=== PATIENT | male | born 1940 | race Caucasian/White ===

== ENCOUNTER 2018-07-22 11:47 | Observation (INO) | payer OTHER ==
--- NOTE | 2018-07-22 12:16 | PDOC ---
History of Present Illness - General Chief Complaint: Shortness of Breath Stated Complaint: SHORTNESS OF BREATH Time Seen by Provider: 07/22/18 12:15 - History of Present Illness Initial Comments: The patient is a 78-year-old male with a PMH of HTN, HLD, Dementia, type 2 DM, melanoma (s/p multiple resections, most recent two days prior on his right ear) , who presents to the emergency department from [facility] complaining of" some problem with my breathing" the evening prior to presentation. He is unclear on what the breathing problem was but states that he felt this strange sensation in his stomach when taking a deep breath during the night. It woke him up out of his sleep and he went to bathroom. He attempted to make himself vomit because he thought it would help him feel better. Otherwise he denies nausea, vomiting ,chest pain, actual shortness of breath, or other symptoms. 07/22/18 12:21 Past History - Past Medical History Allergies/Adverse Reactions: Allergies Allergy/AdvReac Type Severity Reaction Status Date / Time No Known Allergies Allergy Verified 07/22/18 12:22 Home Medications: Ambulatory Orders Amlodipine Besylate 2.5 mg PO DAILY 12/17/14 Bupropion HCl [Bupropion Xl] 150 mg PO DAILY 12/17/14 Memantine HCl 5 mg PO DAILY 12/17/14 Simvastatin 5 mg PO HS 12/17/14 Aspirin 81 mg PO DAILY 07/22/18 Carboxymethylcellulose Sodium [Lubricant Eye Drop] 15 ml OS BID 07/22/18 Ciprofloxacin [Cipro (Restricted To Id)] 250 mg PO BID 07/22/18 Docusate Sodium [Colace] 200 mg PO HS 07/22/18 Glimepiride [Amaryl -] 3 mg PO DAILY 07/22/18 Guaifenesin 400 mg PO PRN 07/22/18 Insulin Glargine,Hum.rec.anlog [Lantus Solostar] 30 units SQ DAILY 07/22/18 Mupirocin Cream [Bactroban 2% Cream -] 1 applic TP BID 07/22/18 Tamsulosin HCl [Flomax] 1 tab PO DAILY 07/22/18 traZODone HCL [Trazodone HCl] 50 mg PO HS 07/22/18 Diabetes: Yes HTN: Yes - Suicide/Smoking/Psychosocial Hx Smoking History: Never smoked Have you smoked in the past 12 months: No Hx Alcohol Use: No Drug/Substance Use Hx: No Substance Use Type: None Review of Systems - Review of Systems Constitutional: No: Chills, Diaphoresis, Fever HEENTM: No: Blurred Vision, Tearing Respiratory: No: Cough, Orthopnea, Shortness of Breath Cardiac (ROS): No: Chest Pain, Irregular Heart Rate ABD/GI: No: Constipated, Diarrhea, Nausea, Poor Appetite, Poor Fluid Intake, Vomiting : No: Burning, Dysuria, Discharge Neurological: No: Headache, Numbness, Paresthesia Psychiatric: No: Anxiety, Depression Hematologic/Lymphatic: No: Anemia, Blood Clots, Easy Bleeding *Physical Exam - Physical Exam General Appearance: Yes: Nourished, Appropriately Dressed. No: Apparent Distress HEENT: positive: EOMI, NGOZI, Normal Voice. negative: Normal ENT Inspection ( multiple skin grafts and scars across face from prevous epidermal procedures) Neck: positive: Trachea midline, Normal Thyroid, Supple. negative: Tender, Rigid Respiratory/Chest: negative: Chest Tender, Lungs Clear (bibasilar lung crackles) , Normal Breath Sounds, Respiratory Distress, Accessory Muscle Use Cardiovascular: positive: Regular Rhythm, Regular Rate, Murmur (systolic ejection murmur) Gastrointestinal/Abdominal: positive: Normal Bowel Sounds, Flat, Soft. negative : Tender Lymphatic: negative: Adenopathy, Tenderness Musculoskeletal: positive: Normal Inspection. negative: Decreased Range of Motion Extremity: positive: Normal Capillary Refill, Normal Inspection, Normal Range of Motion. negative: Tender Integumentary: positive: Normal Color, Dry, Warm Neurologic: positive: Alert, Normal Mood/Affect, Normal Response, Motor Strength 5/5. negative: Fully Oriented (AOx [address] but not time) Vital Signs - Vital Signs #2 Blood Pressure: 156/54 MAP: 88 BP Location: Right Arm Blood Pressure Position: Sitting Pulse Rate: 72 O2 Sat by Pulse Oximetry (%): 100 Oxygen Delivery Method: Room Air ED Treatment Course - LABORATORY CBC & Chemistry Diagram: 07/22/18 10:40 07/22/18 10:40 Medical Decision Making - Medical Decision Making 78 year old male presenting with difficulty breathing nad (eventually described as) epigastric pressure. His WBC returned elevated to the high teens. Unclear cause for white blood cell count but given cardiac history, it would be appropriate to admit him for an ACS rule out. We also obtained an abdominal CT which did not demonstrate any acute pathology. Patient's discomfort did eventually improve on its own during this CT scan. First troponin negative and EKG demonstrating rate 74, WV 194, QRS 86, QTc 439, with left axis and TWI in II , III which seem unchanged from previous EKG in December. Given pulmonary findings and potential radiological corroboration at the right lung base - this may also be suspicious for PNA but lack of WBC and fever do not corroborate this. Regardless, will admit for ACS rule out. 07/22/18 15:19 *DC/Admit/Observation/Transfer Diagnosis at time of Disposition: Ruled out for myocardial infarction - Referrals - Patient Instructions - Post Discharge Activity
[2018-07-22] MEDS ORDERED: ASPIRIN 81 MG CHEWABLE TABLETS PO ONE (12:38)
[2018-07-22] MEDS ORDERED: ASPIRIN 81 MG CHEWABLE TABLETS ONE (12:54)
[2018-07-22 13:12] LABS: BASO % 0.4 % (0-2.0); EOS % 0.5 % (0-4.5); HEMATOCRIT 44.5 % (35.4-49); HEMOGLOBIN 14.7 GM/dL (11.7-16.9); LYMPH % 7.7 % (8-40); MCH 29.4 pg (25.7-33.7); MEAN CELL VOLUME 89.1 fl (80-96); MEAN PLT VOLUME 6.9 fl (7.5-11.1); MONO % 4.2 % (3.8-10.2); NEUT % 87.2 % (42.8-82.8); PLATELET COUNT 287 K/MM3 (134-434); RBC 4.99 M/mm3 (4.00-5.60); RDW 13.7 % (11.9-15.9); WHITE BLOOD COUNT 18.5 K/mm3 (4.0-10.0)
[2018-07-22 13:26] LABS: INR 1.08 (0.83-1.09); PROTHROMBIN TIME (PATIENT) 12.7 SEC (9.7-13.0)
[2018-07-22 13:33] LABS: ALBUMIN 3.7 g/dl (3.4-5.0); ALK PHOS 95 U/L (45-117); ANION GAP 8 MMOL/L (8-16); BILIRUBIN,TOTAL 0.2 mg/dL (0.2-1); BLOOD UREA NITROGEN 16 mg/dL (7-18); CALCIUM 8.6 mg/dL (8.5-10.1); CHLORIDE 105 mmol/L (98-107); CO2 22 mmol/L (21-32); CREATININE 1.3 mg/dL (0.55-1.3); GLUCOSE,RANDOM 260 mg/dL (74-106); POTASSIUM 4.2 mmol/L (3.5-5.1); SGOT/AST 19 U/L (15-37); SGPT/ALT 25 U/L (13-61); SODIUM 135 mmol/L (136-145); TOT PROT 6.8 g/dl (6.4-8.2)
--- NOTE | 2018-07-22 15:13 | PDOC ---
Documentation entered by Kiel Ken SCRIBE, acting as scribe for Sterling Carrasquillo MD. Sterling Carrasquillo MD: This documentation has been prepared by the Jesus Manuel marc Xhesika, SCRIBE, under my direction and personally reviewed by me in its entirety. I confirm that the documentation accurately reflects all work, treatment, procedures, and medical decision making performed by me. Attending Attestation - Resident Resident Name: Duog Cardozo - ED Attending Attestation I have performed the following: I have examined & evaluated the patient, The case was reviewed & discussed with the resident, I agree w/resident's findings & plan - HPI HPI: 07/22/18 14:22 The patient is a 78 year old male, from [facility], with a significant PMH of HTN, type 2 DM, and melanoma (s/p multiple resections , most recent two days prior on his right ear), who presents to the emergency department with one day of shortness of breath. The patient states he has been having sensations in his stomach that prevent him from breathing. The patient states his pain is alleviated when defecating, however, when he went to sleep last night, his shortness of breath woke up him up from his sleep. The patient states he tried to vomit but was unable. As per daughter at bedside, she received a call from [facility] that the patient has been endorsing SOB. The patient denies any complaints at this time. No known cardiac history or cath, has unlimited exercise tolerance at baseline per report. The patient denies chest pain, shortness of breath or dizziness. The patient denies fever, chills, nausea, vomiting, diarrhea or constipation. The patient denies dysuria, frequency, urgency or hematuria. Allergy: NKDA - Physicial Exam PE: 07/22/18 15:06 hypertensive, seated upright in stretcher in mild distress when tries to catch his breath, occasionally restless otherwise speaking full sentences and minimizing sxs. no jvd s1s2 rrr bibasilar crackles, no wheeze or focally decreased breath sounds abd distended but soft. appears to voluntarily guard in the upper abdomen but no rebound, BS nl neuro nonfocal no edema - Medical Decision Making 07/22/18 15:09 78-y/o M from assisted living facility with epigastric/lower sternal "fullness" and air hunger. No acute respiratory distress here, hypertensive but normal O2 sat. ? anginal equivalent/CHF, ? abdominal etiology. labs including trop ekg, cxr ctap reassess, likely admission for cardiac workup 07/22/18 16:32 leukocytosis 18.5, labs otherwise wnl including trop. pursue infectious etiology: cxr, ctap continues to have intermittent bouts of difficulty breathing, EKG during event sinus alva without acute ischemia. will need admission for monitoring. Heart Score/ECG Review #1 ECG reviewed & interpreted by me at: 13:06 General ECG Interpretation: Sinus Rhythm, Normal Rate (74), Normal Intervals ( qtc 439), No acute ischemic changes Compared to previous ECG there are: No significant change (c/w 2014, inferior prwp old, but precordial lead PRWP new) #2 ECG reviewed & interpreted by me at: 15:04 General ECG Interpretation: Sinus Rhythm, Normal Rate (49), Normal Intervals ( qtc 420), No acute ischemic changes
--- NOTE | 2018-07-22 15:57 | EKG ---
Test Reason : Blood Pressure : / mmHG Vent. Rate : 074 BPM Atrial Rate : 074 BPM P-R Int : 194 ms QRS Dur : 086 ms QT Int : 396 ms P-R-T Axes : 037 -51 -05 degrees QTc Int : 439 ms POOR DATA QUALITY, INTERPRETATION MAY BE ADVERSELY AFFECTED NORMAL SINUS RHYTHM LEFT AXIS DEVIATION INFERIOR INFARCT , AGE UNDETERMINED ANTERIOR INFARCT , AGE UNDETERMINED ABNORMAL ECG NO PREVIOUS ECGS AVAILABLE Confirmed by Souleymane Mora ([id number]) on 07/22/2018 3:57:19 PM Referred By: Confirmed By:Souleymane Mora
[2018-07-22] MEDS ORDERED: ONDANSETRON 4 MG/2 ML VIAL ONE (16:07)
[2018-07-22] MEDS ORDERED: PANTOPRAZOLE SODIUM 40 MG/100 ML BAG IVPB ONE (16:17)
[2018-07-22] MEDS ORDERED: MAG HYDROX/AL HYDROX/SIMETH 30 ML UNIT-DOSE CUP PO ONE (16:25)
[2018-07-22] MEDS ORDERED: MAG HYDROX/AL HYDROX/SIMETH 30 ML UNIT-DOSE CUP ONE (16:27)
[2018-07-22] MEDS ORDERED: PANTOPRAZOLE SODIUM 40 MG VIAL IVPUSH ONE (16:36)
[2018-07-22] MEDS ORDERED: ONDANSETRON 4 MG/2 ML VIAL IVPUSH ONE (16:36)
[2018-07-22 17:29] LABS: AMYLASE 43 U/L (25-115); LIPASE 127 U/L (73-393)
--- NOTE | 2018-07-22 20:21 | PN ---
Teaching Attending Note Name of Resident: Eitan Nunez ATTENDING PHYSICIAN STATEMENT I saw and evaluated the patient. I reviewed the resident's note and discussed the case with the resident. I agree with the resident's findings and plan as documented. SUBJECTIVE: HTN, HLD, DM Recent melanoma excsion [facility]; CC several months of epigastric pain; waxin and waning. Nothing makes better or worse, lasts 10 mins to hour then goes away. Doesn't remember the inciting event. Last night he complained about this to staff and this AM was evaluated by doctor and was brought into [place]. 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 Remote history of smoking but does have >30 pack years. 10 sys ROS done and negative aside for HPI PMH, PSH, FH, SH reviewed Home Medications Medication Instructions Recorded Amlodipine Besylate 2.5 mg PO DAILY 12/17/14 Bupropion HCl [Bupropion Xl] 150 mg PO DAILY 12/17/14 Memantine HCl 5 mg PO DAILY 12/17/14 Simvastatin 5 mg PO HS 12/17/14 Aspirin 81 mg PO DAILY 07/22/18 Carboxymethylcellulose Sodium 15 ml OS BID 07/22/18 [Lubricant Eye Drop] Ciprofloxacin [Cipro (Restricted 250 mg PO BID 07/22/18 To Id)] Docusate Sodium [Colace] 200 mg PO HS 07/22/18 Glimepiride [Amaryl -] 3 mg PO DAILY 07/22/18 Guaifenesin 400 mg PO PRN 07/22/18 Insulin Glargine,Hum.rec.anlog 30 units SQ DAILY 07/22/18 [Lantus Solostar] Mupirocin Cream [Bactroban 2% 1 applic TP BID 07/22/18 Cream -] Tamsulosin HCl [Flomax] 1 tab PO DAILY 07/22/18 traZODone HCL [Trazodone HCl] 50 mg PO HS 07/22/18 OBJECTIVE: VS, labs, imaging reviewed NAD, AAO, resting comfortably in bed NC AT EOMI PERRLA RRR s1/2 no mgr Lungs CTAB, w/ sym exp NT ND +BS CN2-12 wnl, no fnd Normal mood, appropriate affect EKG reviewed; initial one with poor baseline and potential Q waves in inf/ant leads but change in baseline noted on repeat; no ST-T elevation CXR reviewed; no acute disease CT abdomen/pelvis reviewed; bladder wall thickening; ?ureterocele ASSESSMENT AND PLAN: Patient presents with atypical CP though he does have risk factors for ACS 1) Atypical CP -Place on telemetry; trend troponin (negative so far), check A1c, TSH, Lipids to stratify. -Adjust statin dose based on ASCVD score -Continue ASA for now -Does have risk factors for ACS but with atypical sx. Can discuss stress test with CV inpt vs. outpt -Check echo for wmas. 2) Leukocytosis -Trend CBC, followup UA
--- NOTE | 2018-07-22 20:43 | HP ---
CHIEF COMPLAINT: PCP: from [facility] HISTORY OF PRESENT ILLNESS: This is an 78 year old male with a past medical history of hypertension, hyperlipidemia, dementia, type II diabetes, melanoma status post multiple resections (latest 2 days ago on R ear), presenting to the hospital from [facility] for several months of mild, intermittent epigastric abdominal discomfort and tightness. Patient reports this tightness comes and goes, with the last episode being last night. He reports telling his doctor at the [facility] living facility who sent him to the emergency room for further evaluation. He reports these episodes occurring on the right side hand on the left side of his epigastrium that are non-radiating and only a 2/10 in severity. Patient denies any symptoms of shortness of breath, chest pain, nausea , vomiting, diarrhea, fevers, chills.Denies any recent travel or sick contacts.Denies any previous cardiac workup including catheterization or echocardiograms. Denies having a home hand carver. ER course was notable for: (1) wbc18.5 (2) (3) Recent Travel: Denies PAST MEDICAL HISTORY: Hypertension, hyperlipidemia, dementia, type II diabetes, melanoma. PAST SURGICAL HISTORY: Melanoma excision, appendectomy Many years ago Social History: Smoking: Smoked for 15 years, quit in 1973, smoked 3ppd Alcohol: No alcohol use Drugs: No drug use Family History: Denies any family history of cardiac disease, cancer, strokes, diabetes. Allergies No Known Allergies Allergy (Verified 07/22/18 12:22) HOME MEDICATIONS: Home Medications Medication Instructions Recorded Amlodipine Besylate 2.5 mg PO DAILY 12/17/14 Bupropion HCl [Bupropion Xl] 150 mg PO DAILY 12/17/14 Memantine HCl 5 mg PO DAILY 12/17/14 Simvastatin 5 mg PO HS 12/17/14 Aspirin 81 mg PO DAILY 07/22/18 Carboxymethylcellulose Sodium 15 ml OS BID 07/22/18 [Lubricant Eye Drop] Ciprofloxacin [Cipro (Restricted 250 mg PO BID 07/22/18 To Id)] Docusate Sodium [Colace] 200 mg PO HS 07/22/18 Glimepiride [Amaryl -] 3 mg PO DAILY 07/22/18 Guaifenesin 400 mg PO PRN 07/22/18 Insulin Glargine,Hum.rec.anlog 30 units SQ DAILY 07/22/18 [Lantus Solostar] Mupirocin Cream [Bactroban 2% 1 applic TP BID 07/22/18 Cream -] Tamsulosin HCl [Flomax] 1 tab PO DAILY 07/22/18 traZODone HCL [Trazodone HCl] 50 mg PO HS 07/22/18 REVIEW OF SYSTEMS CONSTITUTIONAL: Absent: fever, chills, diaphoresis, generalized weakness, malaise, loss of appetite, weight change HEENT: Absent: rhinorrhea, nasal congestion, throat pain, throat swelling, difficulty swallowing, mouth swelling, ear pain, eye pain, visual changes CARDIOVASCULAR: Absent: chest pain, syncope, palpitations, irregular heart rate, lightheadedness , peripheral edema RESPIRATORY: Absent: cough, shortness of breath, dyspnea with exertion, orthopnea, wheezing, stridor, hemoptysis GASTROINTESTINAL: Absent: abdominal pain, abdominal distension, nausea, vomiting, diarrhea, constipation, melena, hematochezia GENITOURINARY: Absent: dysuria, frequency, urgency, hesitancy, hematuria, flank pain, genital pain MUSCULOSKELETAL: Absent: myalgia, arthralgia, joint swelling, back pain, neck pain SKIN: Absent: rash, itching, pallor HEMATOLOGIC/IMMUNOLOGIC: Absent: easy bleeding, easy bruising, lymphadenopathy, frequent infections ENDOCRINE: Absent: unexplained weight gain, unexplained weight loss, heat intolerance, cold intolerance NEUROLOGIC: Absent: headache, focal weakness or paresthesias, dizziness, unsteady gait, seizure, mental status changes, bladder or bowel incontinence PSYCHIATRIC: Absent: anxiety, depression, suicidal or homicidal ideation, hallucinations. PHYSICAL EXAMINATION Vital Signs - 24 hr 07/22/18 07/22/18 07/22/18 11:47 13:33 16:20 Temperature 97.1 F L Pulse Rate 75 Pulse Rate [#2] Pulse Rate [ 70 Apical] Respiratory 16 20 Rate Blood Pressure 182/89 H Blood Pressure [#2] Blood Pressure 174/82 H [Left Arm] O2 Sat by Pulse 98 98 98 Oximetry (%) O2 Sat by Pulse Oximetry (%) [ #2] 07/22/18 07/22/18 19:31 20:14 Temperature 97.1 F L Pulse Rate Pulse Rate [#2] 72 Pulse Rate [ 78 Apical] Respiratory 20 Rate Blood Pressure Blood Pressure 156/54 L [#2] Blood Pressure 135/63 [Left Arm] O2 Sat by Pulse 97 Oximetry (%) O2 Sat by Pulse 100 Oximetry (%) [ #2] GENERAL: A&Ox3, no acute distress EYES: PERRLA, EOMI ENT: Moist mucus membranes NECK: No JVD LUNGS: CTA, no wheezes HEART: RRR, no murmurs ABDOMEN: Soft, nontender, BS present MUSCULOSKELETAL: No CVA Tenderness EXTREMITIES: 2+ pulses, no edema. NEUROLOGICAL: Cranial nerves II-XII intact. Laboratory Results - last 24 hr 07/22/18 07/22/18 07/22/18 10:40 10:40 10:40 WBC 18.5 H RBC 4.99 Hgb 14.7 Hct 44.5 MCV 89.1 MCH 29.4 MCHC 33.0 RDW 13.7 Plt Count 287 MPV 6.9 L Absolute Neuts (auto) 16.1 H Neutrophils % 87.2 H Lymphocytes % 7.7 L Monocytes % 4.2 Eosinophils % 0.5 Basophils % 0.4 Nucleated RBC % 0 PT with INR 12.70 INR 1.08 Sodium 135 L Potassium 4.2 Chloride 105 Carbon Dioxide 22 Anion Gap 8 BUN 16 Creatinine 1.3 Est GFR (CKD-EPI)AfAm 59.73 Est GFR (CKD-EPI)NonAf 51.53 Random Glucose 260 H Calcium 8.6 Total Bilirubin 0.2 AST 19 ALT 25 Alkaline Phosphatase 95 Creatine Kinase 166 Creatine Kinase Index 4.2 CK-MB (CK-2) 7.1 H Troponin I < 0.02 Total Protein 6.8 Albumin 3.7 Total Amylase Lipase 07/22/18 16:24 WBC RBC Hgb Hct MCV MCH MCHC RDW Plt Count MPV Absolute Neuts (auto) Neutrophils % Lymphocytes % Monocytes % Eosinophils % Basophils % Nucleated RBC % PT with INR INR Sodium Potassium Chloride Carbon Dioxide Anion Gap BUN Creatinine Est GFR (CKD-EPI)AfAm Est GFR (CKD-EPI)NonAf Random Glucose Calcium Total Bilirubin AST ALT Alkaline Phosphatase Creatine Kinase Creatine Kinase Index CK-MB (CK-2) Troponin I < 0.02 Total Protein Albumin Total Amylase 43 Lipase 127 ASSESSMENT/PLAN: #Epigastric abdominal pain/Chest Pain: Currently improved, will assess coronary heart disease and risk for acute coronary syndrome -EKG Showed normal sinus rhythm with a left axis deviation And possible Q waves in the inferior and anterior leads -No recent echocardiogram on file, will order new echo. -Aspirin loading dose was given in the emergency room, we'll continue and 81 mg of aspirin daily -Patient is on a low intensity Ilan that home, will start on atorvastatin 40 mg Daily, We will adjust his dose based on his ASCVD ten year cardiovascular risk, Which we cannot calculate until labs returned in the morning -Lipid panel in the morning -Hemoglobin A1C ordered -Continuous cardiac monitoring now -Consider cardiology consultation in the morning -Consider getting a nuclear stress test in the morning based on cardiac risk factors and likely intermediate pretest probability #Leukocytosis: Unclear ideology at present time, however patient recently had excision of a melanoma lesion on his right ear and his anterior Neck near the Clavicle, Which may be contributing. -Will order a urinalysis and urine culture as well as a blood culture. -Will not start on empiric antibiotic therapy #Bladder Wall Thickening: Found on CAT scan of the abdomen -Will order ultrasound of the pelvis and bladder including ureters #Diabetes mellitus: Patient's blood glucose was elevated to 260 today -Will check A1C -Blood glucose monitoring before every meal -Insulin sliding scale coverage as needed before every meal #FEN: -No standing fluids -Electrolytes are within normal limits -Cholesterol control diet #Prophylaxis: -Lovenox prophylaxis #Disposition: -Admit to telemetry observation Visit type - Emergency Visit Emergency Visit: Yes ED Registration Date: 07/22/18 Care time: The patient presented to the Emergency Department on the above date and was hospitalized for further evaluation of their emergent condition. - New Patient This patient is new to me today: Yes Date on this admission: 07/22/18 - Critical Care Critical Care patient: No
[2018-07-22] MEDS ORDERED: DOCUSATE SODIUM 100 MG CAPSULE (FP) PO ONE (21:45)
[2018-07-22] MEDS ORDERED: ATORVASTATIN CA 40 MG TABLET (FP) ONE (21:45)
[2018-07-22] MEDS: DOCUSATE SODIUM 100 MG CAPSULE (FP) PO SCH (21:58)
[2018-07-22] MEDS: INSULIN SLIDING SCALE (NOVOLOG) 1 VIAL SQ SCH (21:58)
[2018-07-22] MEDS: ATORVASTATIN CA 40 MG TABLET (FP) PO SCH (21:58)
[2018-07-22] MEDS: ARTIFICIAL TEARS (POLYVINYL ALCOHOL) OPTH DROPS OS SCH (21:59)
[2018-07-22] MEDS ORDERED: ATORVASTATIN CA 10 MG TABLET (FP) PO SCH (22:00)
[2018-07-22] MEDS ORDERED: INSULIN (NOVOLOG) ASPART 100 UNITS/ML 10ML VIAL ONE (22:01)
[2018-07-22] MEDS: traZODone HCL 50 MG TABLET (FP) PO SCH (22:03)
[2018-07-23 06:45] LABS: HEMATOCRIT 40.3 % (35.4-49); HEMOGLOBIN 13.7 GM/dL (11.7-16.9); MCH 29.7 pg (25.7-33.7); MEAN CELL VOLUME 87.3 fl (80-96); MEAN PLT VOLUME 7.1 fl (7.5-11.1); PLATELET COUNT 286 K/MM3 (134-434); RBC 4.62 M/mm3 (4.00-5.60); RDW 13.7 % (11.9-15.9); WHITE BLOOD COUNT 14.6 K/mm3 (4.0-10.0)
[2018-07-23] MEDS: INSULIN SLIDING SCALE (NOVOLOG) 1 VIAL SQ SCH ×4 (07:23→22:46)
[2018-07-23] MEDS ORDERED: INSULIN (NOVOLOG) ASPART 100 UNITS/ML 10ML VIAL ONE ×2 (07:26→11:11)
[2018-07-23 07:32] LABS: ANION GAP 7 MMOL/L (8-16); BLOOD UREA NITROGEN 14 mg/dL (7-18); CALCIUM 8.5 mg/dL (8.5-10.1); CHLORIDE 108 mmol/L (98-107); CHOLESTEROL 117 mg/dL (50-200); CO2 23 mmol/L (21-32); CREATININE 1.2 mg/dL (0.55-1.3); GLUCOSE,RANDOM 155 mg/dL (74-106); HDL CHOLESTEROL 35 mg/dL (40-60); MAGNESIUM 2.2 mg/dL (1.8-2.4); POTASSIUM 3.8 mmol/L (3.5-5.1); SODIUM 137 mmol/L (136-145); TRIGLYCERIDES 153 mg/dL (0-150)
[2018-07-23] MEDS: ARTIFICIAL TEARS (POLYVINYL ALCOHOL) OPTH DROPS OS SCH ×2 (09:11→22:36)
[2018-07-23] MEDS: ENOXAPARIN NA (PORCINE) 40 MG/0.4 ML DISP.SYRIN SQ SCH (09:11)
[2018-07-23] MEDS: amLODIPine BESYLATE 2.5 MG TABLET (FP) PO SCH (09:11)
[2018-07-23] MEDS: ASPIRIN 81 MG CHEWABLE TABLETS PO SCH (09:11)
[2018-07-23] MEDS: MEMANTINE HCL 5 MG TABLET (UD) PO SCH (09:11)
[2018-07-23] MEDS: TAMSULOSIN HCL 0.4 MG CAP PO SCH (09:11)
--- NOTE | 2018-07-23 13:05 | EKG ---
Test Reason : Blood Pressure : / mmHG Vent. Rate : 049 BPM Atrial Rate : 049 BPM P-R Int : 178 ms QRS Dur : 102 ms QT Int : 466 ms P-R-T Axes : 040 -53 002 degrees QTc Int : 420 ms SINUS BRADYCARDIA LEFT ANTERIOR FASCICULAR BLOCK ABNORMAL ECG WHEN COMPARED WITH ECG OF 22-JUL-2018 13:06, VENT. RATE HAS DECREASED BY 25 BPM CRITERIA FOR ANTERIOR INFARCT ARE NO LONGER PRESENT Confirmed by DUSTIN GRANGER MD ([id number]) on 07/23/2018 1:05:15 PM Referred By: Confirmed By:DUSTIN GRANGER MD
--- NOTE | 2018-07-23 14:38 | PN ---
Physical Exam: SUBJECTIVE: Patient seen and examined at bedside- no acute events overnight; patient states that he is no longer having any chest pain and feels great- he denies any CP/SOB/N/V OBJECTIVE: Vital Signs Period Temp Pulse Resp BP Sys/Winslow Pulse Ox Last 24 Hr 97.1 F-98.1 F 61-78 17-20 131-174/54-82 97-100 GENERAL: The patient is awake, alert, and fully oriented, in no acute distress. EYES:PEERLA: EOMI: no scleral icterus NECK: no JVD; no lymphadenopathy. LUNGS: CTA B/L;no rales, rhonchi or wheezing HEART: Regular rate and rhythm, S1, S2 without murmur, rub or gallop. ABDOMEN: Soft, nontender, nondistended, normoactive bowel sounds, no guarding, no rebound, no hepatosplenomegaly, no masses. EXTREMITIES: 2+ pulses, warm, well-perfused, no edema. . PSYCH: Normal mood, normal affect. SKIN: Warm, dry, normal turgor, no rashes or lesions noted Laboratory Results - last 24 hr 07/22/18 07/22/18 07/23/18 16:24 21:56 06:00 WBC 14.6 H RBC 4.62 Hgb 13.7 Hct 40.3 MCV 87.3 MCH 29.7 MCHC 34.0 RDW 13.7 Plt Count 286 MPV 7.1 L Sodium Potassium Chloride Carbon Dioxide Anion Gap BUN Creatinine Est GFR (CKD-EPI)AfAm Est GFR (CKD-EPI)NonAf POC Glucometer 181 Random Glucose Hemoglobin A1c % Calcium Magnesium Troponin I < 0.02 Triglycerides Cholesterol Total LDL Cholesterol HDL Cholesterol Total Amylase 43 Lipase 127 TSH 07/23/18 07/23/18 07/23/18 06:00 06:00 07:21 WBC RBC Hgb Hct MCV MCH MCHC RDW Plt Count MPV Sodium 137 Potassium 3.8 Chloride 108 H Carbon Dioxide 23 Anion Gap 7 L BUN 14 Creatinine 1.2 Est GFR (CKD-EPI)AfAm 65.79 Est GFR (CKD-EPI)NonAf 56.77 POC Glucometer 174 Random Glucose 155 H Hemoglobin A1c % 8.2 H Calcium 8.5 Magnesium 2.2 Troponin I Triglycerides 153 H Cholesterol 117 Total LDL Cholesterol 62 HDL Cholesterol 35 L Total Amylase Lipase TSH 1.55 D 07/23/18 11:08 WBC RBC Hgb Hct MCV MCH MCHC RDW Plt Count MPV Sodium Potassium Chloride Carbon Dioxide Anion Gap BUN Creatinine Est GFR (CKD-EPI)AfAm Est GFR (CKD-EPI)NonAf POC Glucometer 210 Random Glucose Hemoglobin A1c % Calcium Magnesium Troponin I Triglycerides Cholesterol Total LDL Cholesterol HDL Cholesterol Total Amylase Lipase TSH Active Medications Generic Name Dose Route Start Last Admin Trade Name Eduardo PRN Reason Stop Dose Admin Amlodipine Besylate 2.5 mg 07/23/18 10:00 07/23/18 09:11 Norvasc - PO 2.5 mg DAILY EUGENIO Administration Artificial Tears 1 drop 07/22/18 22:00 07/23/18 09:11 Artificial Tears OS Not Given BID EUGENIO Aspirin 81 mg 07/23/18 10:00 07/23/18 09:11 Asa - PO 81 mg DAILY EUGENIO Administration Atorvastatin Calcium 40 mg 07/22/18 22:00 07/22/18 21:58 Lipitor - PO 40 mg HS EUGENIO Administration Bupropion HCl 150 mg 07/23/18 10:00 07/23/18 09:11 Wellbutrin Xl - PO 150 mg DAILY EUGENIO Administration Docusate Sodium 200 mg 07/22/18 22:00 07/22/18 21:58 Colace - PO 200 mg HS EUGENIO Administration Enoxaparin Sodium 40 mg 07/23/18 10:00 07/23/18 09:11 Lovenox - SQ 40 mg DAILY EUGENIO Administration Insulin Aspart 1 vial 07/22/18 22:00 07/23/18 11:13 Novolog Vial Sliding Scale - SQ 4 units ACHS EUGENIO Administration Protocol Memantine 5 mg 07/23/18 10:00 07/23/18 09:11 Namenda - PO 5 mg DAILY EUGENIO Administration Tamsulosin HCl 0.4 mg 07/23/18 08:30 07/23/18 09:11 Flomax - PO 0.4 mg 0830 EUGENIO Administration Trazodone HCl 50 mg 07/22/18 22:00 07/22/18 22:03 Desyrel - PO 50 mg HS EUGENIO Administration ASSESSMENT/PLAN: #Epigastric abdominal pain/Chest Pain: -EKG Showed normal sinus rhythm with a left axis deviation And possible Q waves in the inferior and anterior leads -echo done; read pending -ASA 81 daily -Lipitor 40 daily -Lipid panel done -Hemoglobin A1C 8.2 -Stress test tomorrow morning -NPO after midnight -tele monitoring #Leukocytosis: Unclear ideology at present time, however patient recently had excision of a melanoma lesion on his right ear and his anterior Neck near the Clavicle, Which may be contributing. -blood and urine cultures negative to date #Bladder Wall Thickening: Found on CAT scan of the abdomen -Will order ultrasound of the pelvis and bladder including ureters #Diabetes mellitus: Patient's blood glucose was elevated -HbA1c 8.2 -Blood glucose monitoring before every meal -Insulin sliding scale coverage as needed before every meal #FEN: -No standing fluids -Electrolytes are within normal limits -NPO after midnight #Prophylaxis: -Lovenox prophylaxis Problem List - Problems (1) Diabetes Code(s): E11.9 - TYPE 2 DIABETES MELLITUS WITHOUT COMPLICATIONS (2) HTN (hypertension) Code(s): I10 - ESSENTIAL (PRIMARY) HYPERTENSION Visit type - Emergency Visit Emergency Visit: Yes ED Registration Date: 07/22/18 Care time: The patient presented to the Emergency Department on the above date and was hospitalized for further evaluation of their emergent condition. - New Patient This patient is new to me today: Yes Date on this admission: 07/23/18 - Critical Care Critical Care patient: No
[2018-07-23 15:36] VITALS: BMI 32.8
--- NOTE | 2018-07-23 15:56 | ECHO ---
Name: ANGELICA KUHN Exam:Adult Echocardiogram Study Date: 07/23/2018 10:22 AM Age: 78 yrs Reason For Study: R/O ACS Height: 67 in Weight: 230 lb BSA: 2.1 m2 MMode/2D Measurements & Calculations IVSd: 1.0 cm Ao root diam: 2.7 cm LVIDd: 4.4 cm LA dimension: 3.2 cm LVIDs: 2.8 cm LVPWd: 0.77 cm EDV(Teich): 88.6 ml LVOT diam: 1.9 cm ESV(Teich): 30.1 ml Doppler Measurements & Calculations MV E max dominick: 71.6 cm/sec Ao V2 max: 228.9 cm/sec MV A max dominick: 100.7 cm/sec Ao max P.0 mmHg MV E/A: 0.71 Ao V2 mean: 165.6 cm/sec MV dec time: 0.38 sec Ao mean P.2 mmHg Ao V2 VTI: 52.9 cm TONY(I,D): 1.2 cm2 AI P1/2t: 726.0 msec TONY(V,D): 1.2 cm2 AI max dominick: 215.7 cm/sec LV V1 max P.8 mmHg AI max P.7 mmHg LV V1 mean P.1 mmHg AI dec slope: 87.0 cm/sec2 LV V1 max: 97.0 cm/sec LV V1 mean: 69.1 cm/sec LV V1 VTI: 21.9 cm SV(LVOT): 60.9 ml TR max dominick: 225.4 cm/sec TR max P.4 mmHg PI end-d dominick: 74.7 cm/sec Med Peak E' Dominick: 3.6 cm/sec Med E/e': 19.8 Lat Peak E' Dominick: 2.1 cm/sec Lat E/e': 33.4 Procedure A two-dimensional transthoracic echocardiogram with color flow and Doppler was performed. The study w as technically difficult with many images being suboptimal in quality. Left Ventricle The left ventricular size, thickness and function are normal. The left ventricular ejection fraction is normal. E/A reversal consistent with but not diagnostic of poor LV compliance. The left ventricular w all motion is normal. Right Ventricle The right ventricle is normal in size and function. Atria Normal left and right atrial size and function. Mitral Valve There is mild mitral valve thickening. There is no mitral valve stenosis. There is trace to mild mitr al regurgitation. Tricuspid Valve There is mild tricuspid valve thickening. There is no tricuspid stenosis. There is mild tricuspid regurgitation. Right ventricular systolic pressure is normal. Aortic Valve The aortic valve is trileaflet. There is moderate aortic valve thickening. There is mild aortic scler osis.;. Mild to moderate valvular aortic stenosis. Hemodynamically significant valvular aortic stenosis canno t be excluded. Moderate aortic regurgitation. Pulmonic Valve The pulmonic valve is not well seen, but is grossly normal. There is no pulmonic valvular stenosis. M ild pulmonic valvular regurgitation. Great Vessels The aortic root is normal size. Pericardium/Pleura There is no pericardial effusion. Interpretation Summary The left ventricular size, thickness and function are normal The left ventricular ejection fraction is normal. The left ventricular wall motion is normal. The study was technically difficult with many images being suboptimal in quality. The aortic valve is trileaflet. There is moderate aortic valve thickening. There is mild aortic sclerosis.; There is mild tricuspid regurgitation. Right ventricular systolic pressure is normal. Mild pulmonic valvular regurgitation. Moderate aortic regurgitation. E/A reversal consistent with but not diagnostic of poor LV compliance Mild to moderate valvular aortic stenosis. Hemodynamically significant valvular aortic stenosis cannot be excluded. There is trace to mild mitral regurgitation. MD Julien Bonilla 07/23/2018 03:55 PM
--- NOTE | 2018-07-23 16:54 | CON.CARD ---
Consult Consult Specialty:: Cardiology Reason for Consultation:: Aortic stenosis - History of Present Illness History of Present Illness: 78 yo DM living at an assisted living facility. Prior ho DM, HTN melanoma. Admitted with upper abdominal discomfort and dyspnea at night without recurrence since admission. No dynamic ST changes and YOSHI negative. Echocardiogram showed normal LV function and size. The aortic valve is calcified with a mean gradient on 12mm Hg (max mean grad was 22) TONY 1.2sq sm. normal RV function. He denies SOB while ambulating with a walker, no CP, dizziness. - History Source History Provided By: Patient Limitations to Obtaining History: No Limitations - Past Medical History Cardio/Vascular: Yes: HTN Endocrine: Yes: Diabetes Mellitus Dermatology: Yes: Basal Cell - Alcohol/Substance Use Hx Alcohol Use: No - Smoking History Smoking history: Never smoked Have you smoked in the past 12 months: No Home Medications - Allergies Allergies/Adverse Reactions: Allergies Allergy/AdvReac Type Severity Reaction Status Date / Time No Known Allergies Allergy Verified 07/22/18 12:22 - Home Medications Home Medications: Ambulatory Orders Amlodipine Besylate 2.5 mg PO DAILY 12/17/14 Bupropion HCl [Bupropion Xl] 150 mg PO DAILY 12/17/14 Memantine HCl 5 mg PO DAILY 12/17/14 Simvastatin 5 mg PO HS 12/17/14 Aspirin 81 mg PO DAILY 07/22/18 Carboxymethylcellulose Sodium [Lubricant Eye Drop] 15 ml OS BID 07/22/18 Ciprofloxacin [Cipro (Restricted To Id)] 250 mg PO BID 07/22/18 Docusate Sodium [Colace] 200 mg PO HS 07/22/18 Glimepiride [Amaryl -] 3 mg PO DAILY 07/22/18 Guaifenesin 400 mg PO PRN 07/22/18 Insulin Glargine,Hum.rec.anlog [Lantus Solostar] 30 units SQ DAILY 07/22/18 Mupirocin Cream [Bactroban 2% Cream -] 1 applic TP BID 07/22/18 Tamsulosin HCl [Flomax] 1 tab PO DAILY 07/22/18 traZODone HCL [Trazodone HCl] 50 mg PO HS 07/22/18 Review of Systems - Review of Systems Constitutional: reports: No Symptoms Eyes: reports: No Symptoms HENT: reports: No Symptoms Neck: reports: No Symptoms Cardiovascular: reports: No Symptoms Respiratory: reports: No Symptoms Gastrointestinal: reports: Abdominal Pain Genitourinary: reports: No Symptoms Vital Signs: Vital Signs Temperature 98.1 F 07/23/18 07:10 Pulse Rate 62 07/23/18 13:52 Respiratory Rate 18 07/23/18 15:45 Blood Pressure 132/74 07/23/18 13:52 O2 Sat by Pulse Oximetry (%) 98 07/23/18 15:45 Constitutional: Yes: Well Nourished, No Distress Eyes: Yes: Conjunctiva Clear, EOM Intact HENT: Yes: Atraumatic, Normocephalic Neck: Yes: Supple, Trachea Midline Respiratory: Yes: Regular, CTA Bilaterally Gastrointestinal: Yes: Normal Bowel Sounds, Soft Cardiovascular: Yes: Regular Rate and Rhythm JVD: No Carotid Bruit: No PMI: Non-Displaced Heart Sounds: Yes: S1, S2 Murmur: Yes: Systolic Murmur (3/6 sys mid peaking M. normal pulses) Extremities: Yes: WNL Edema: No - Other Data Labs, Other Data: CBC, BMP 07/23/18 06:00 07/23/18 06:00 INR, PTT INR 1.08 (0.83-1.09) 07/22/18 10:40 Troponin, BNP 07/22/18 07/23/18 16:24 06:00 Troponin I < 0.02 < 0.02 Troponin, BNP 07/22/18 07/23/18 16:24 06:00 Troponin I < 0.02 < 0.02 Sinus alva LAFB Assessment/Plan Admitted with upper abdominal pain and dyspnea Exam is consistent with moderate Aortic stenosis. Echocardiogram shows a heavily calcified valve with moderate Likely has moderate based on above findings. He should have follow up echocardiogram in a few months to reassess stability of the valve. Out patient cardiology fu is suggested. Please call with questions.
--- NOTE | 2018-07-23 17:02 | PN ---
Teaching Attending Note Name of Resident: Lucie French ATTENDING PHYSICIAN STATEMENT I saw and evaluated the patient. I reviewed the resident's note and discussed the case with the resident. I agree with the resident's findings and plan as documented. SUBJECTIVE: No further chest discomfort. No palpitations/dyspnea/orthopnea/PND. No cough/sputum/hemoptysis. No fever/chills. No nausea/vomiting. OBJECTIVE: Afebrile, hemodynamically Stable. Last Vital Signs Temp Pulse Resp BP Pulse Ox 98.1 F 62 18 132/74 98 07/23/18 07:10 07/23/18 13:52 07/23/18 15:45 07/23/18 13:52 07/23/18 15:45 HEENT - Atraumatic, Normocephalic. R ear melanoma excision site dressed Heart - S1, S2, SM Lungs - clear to auscultation Abdomen - soft, non-tender. Bowel Sounds normal. Extremities - no calf tenderness. No edema. Laboratory Results - last 24 hr 07/22/18 07/22/18 07/23/18 16:24 21:56 06:00 WBC 14.6 H RBC 4.62 Hgb 13.7 Hct 40.3 MCV 87.3 MCH 29.7 MCHC 34.0 RDW 13.7 Plt Count 286 MPV 7.1 L Sodium Potassium Chloride Carbon Dioxide Anion Gap BUN Creatinine Est GFR (CKD-EPI)AfAm Est GFR (CKD-EPI)NonAf POC Glucometer 181 Random Glucose Hemoglobin A1c % Calcium Magnesium Troponin I < 0.02 Triglycerides Cholesterol Total LDL Cholesterol HDL Cholesterol Total Amylase 43 Lipase 127 TSH 07/23/18 07/23/18 07/23/18 06:00 06:00 07:21 WBC RBC Hgb Hct MCV MCH MCHC RDW Plt Count MPV Sodium 137 Potassium 3.8 Chloride 108 H Carbon Dioxide 23 Anion Gap 7 L BUN 14 Creatinine 1.2 Est GFR (CKD-EPI)AfAm 65.79 Est GFR (CKD-EPI)NonAf 56.77 POC Glucometer 174 Random Glucose 155 H Hemoglobin A1c % 8.2 H Calcium 8.5 Magnesium 2.2 Troponin I < 0.02 Triglycerides 153 H Cholesterol 117 Total LDL Cholesterol 62 HDL Cholesterol 35 L Total Amylase Lipase TSH 1.55 D 07/23/18 07/23/18 11:08 16:34 WBC RBC Hgb Hct MCV MCH MCHC RDW Plt Count MPV Sodium Potassium Chloride Carbon Dioxide Anion Gap BUN Creatinine Est GFR (CKD-EPI)AfAm Est GFR (CKD-EPI)NonAf POC Glucometer 210 199 Random Glucose Hemoglobin A1c % Calcium Magnesium Troponin I Triglycerides Cholesterol Total LDL Cholesterol HDL Cholesterol Total Amylase Lipase TSH Current Medications Generic Name Dose Route Start Last Admin Trade Name Eduardo PRN Reason Stop Dose Admin Amlodipine Besylate 2.5 mg 07/23/18 10:00 07/23/18 09:11 Norvasc - PO 2.5 mg DAILY EUGENIO Administration Artificial Tears 1 drop 07/22/18 22:00 07/23/18 09:11 Artificial Tears OS Not Given BID EUGENIO Aspirin 81 mg 07/23/18 10:00 07/23/18 09:11 Asa - PO 81 mg DAILY EUGENIO Administration Atorvastatin Calcium 40 mg 07/22/18 22:00 07/22/18 21:58 Lipitor - PO 40 mg HS EUGENIO Administration Bupropion HCl 150 mg 07/23/18 10:00 07/23/18 09:11 Wellbutrin Xl - PO 150 mg DAILY EUGENIO Administration Docusate Sodium 200 mg 07/22/18 22:00 07/22/18 21:58 Colace - PO 200 mg HS EUGENIO Administration Enoxaparin Sodium 40 mg 07/23/18 10:00 07/23/18 09:11 Lovenox - SQ 40 mg DAILY EUGENIO Administration Insulin Aspart 1 vial 07/22/18 22:00 07/23/18 16:37 Novolog Vial Sliding Scale - SQ 2 units ACHS EUGENIO Administration Protocol Memantine 5 mg 07/23/18 10:00 07/23/18 09:11 Namenda - PO 5 mg DAILY EUGENIO Administration Tamsulosin HCl 0.4 mg 07/23/18 08:30 07/23/18 09:11 Flomax - PO 0.4 mg 0830 EUGENIO Administration Trazodone HCl 50 mg 07/22/18 22:00 07/22/18 22:03 Desyrel - PO 50 mg HS EUGENIO Administration Home Medications Medication Instructions Recorded Amlodipine Besylate 2.5 mg PO DAILY 12/17/14 Bupropion HCl [Bupropion Xl] 150 mg PO DAILY 12/17/14 Memantine HCl 5 mg PO DAILY 12/17/14 Simvastatin 5 mg PO HS 12/17/14 Aspirin 81 mg PO DAILY 07/22/18 Carboxymethylcellulose Sodium 15 ml OS BID 07/22/18 [Lubricant Eye Drop] Ciprofloxacin [Cipro (Restricted 250 mg PO BID 07/22/18 To Id)] Docusate Sodium [Colace] 200 mg PO HS 07/22/18 Glimepiride [Amaryl -] 3 mg PO DAILY 07/22/18 Guaifenesin 400 mg PO PRN 07/22/18 Insulin Glargine,Hum.rec.anlog 30 units SQ DAILY 07/22/18 [Lantus Solostar] Mupirocin Cream [Bactroban 2% 1 applic TP BID 07/22/18 Cream -] Tamsulosin HCl [Flomax] 1 tab PO DAILY 07/22/18 traZODone HCL [Trazodone HCl] 50 mg PO HS 07/22/18 ASSESSMENT AND PLAN: 78 year old male with history of Dementia, hypertension, hyperlipidemia, DM 2, Melanoma status post multiple resections (most recent R ear and left proximal anterior chest), presents with intermittent intermittent epigastric abdominal discomfort and associated chest tightness. No associated SOB/palps/diaphoresis/ nausea/vomiting. 1. Atypical Chest Pain ECG - SR, no acute ST changes TnI neg x2 Echo - normal LV function, "hemodynamically significant valvular cannot be excluded" Cardiology consulted for further eval and recs re: Echo findings and medication optimization. NM Stress in AM, NPO after midnight. Continue Aspirin, Simvastatin 2. DM 2 - Uncontrolled, A1c 8.2 Maintain on insulin sliding scale. Glargine and Glimepiride held as patient will be NPO from midnight. 3. HTN - Continue Norvasc. 4. HLD - Continue Simvastatin. 5. BPH - Continue Flomax 6. Dementia with Depression - Continue Namenda and Wellbutrin 7. Bladder Wall Thickening with dilatation of distal ureters on CT A/P - for out -patient Urology follow up. 8. R Nephrolithiasis, asymptomatic - for out-patient Urology referral. 9. Cholelithiasis - no signs of cholecystitis. RUQ non-tender. Will monitor for any signs of biliary colic. DVT Px - Lovenox SQ
[2018-07-23] MEDS: DOCUSATE SODIUM 100 MG CAPSULE (FP) PO SCH (22:35)
[2018-07-23] MEDS: traZODone HCL 50 MG TABLET (FP) PO SCH (22:35)
[2018-07-23] MEDS: ATORVASTATIN CA 40 MG TABLET (FP) PO SCH (22:35)
[2018-07-23 22:48] LABS: EPI CELLS 0.9 /HPF (0-5/HPF); HYALINE CASTS 3 /lpf (0-8); URINE APPEARANCE CLOUDY; URINE BILIRUBIN NEGATIVE (NEGATIVE); URINE COLOR YELLOW; URINE GLUCOSE (UA) NEGATIVE (NEGATIVE); URINE KETONE NEGATIVE (NEGATIVE); URINE LEUK ESTERASE 3+ (NEGATIVE); URINE NITRITE NEGATIVE (NEGATIVE); URINE PROTEIN NEGATIVE (NEGATIVE); URINE RBC 2 /hpf (0-4); URINE UROBILINOGEN 0.2 mg/dL (0.2-1.0); URINE WBC 137 /hpf (0-5)
[2018-07-24] MEDS: INSULIN SLIDING SCALE (NOVOLOG) 1 VIAL SQ SCH ×2 (06:29→13:25)
[2018-07-24 07:13] LABS: HEMATOCRIT 41.8 % (35.4-49); MCH 29.4 pg (25.7-33.7); MCHC 33.5 g/dl (32.0-35.9); MEAN CELL VOLUME 87.8 fl (80-96); MEAN PLT VOLUME 7.1 fl (7.5-11.1); PLATELET COUNT 291 K/MM3 (134-434); RBC 4.76 M/mm3 (4.00-5.60); RDW 13.3 % (11.9-15.9); WHITE BLOOD COUNT 11.3 K/mm3 (4.0-10.0)
[2018-07-24 07:32] LABS: CALCIUM 8.7 mg/dL (8.5-10.1); CREATININE 1.3 mg/dL (0.55-1.3); MAGNESIUM 1.9 mg/dL (1.8-2.4); PHOSPHOROUS 2.5 mg/dL (2.5-4.9); POTASSIUM 4.1 mmol/L (3.5-5.1)
[2018-07-24] MEDS: amLODIPine BESYLATE 2.5 MG TABLET (FP) PO SCH (09:00)
[2018-07-24] MEDS ORDERED: REGADENOSON 0.4 MG/5 ML PRE-FILLED SYRINGE IVPUSH ONE ×2 (09:50→10:00)
[2018-07-24 12:30] VITALS: BP 155/70; PULSE 77; TEMP 98.6
--- NOTE | 2018-07-24 13:08 | PN ---
Teaching Attending Note Name of Resident: Lucie French ATTENDING PHYSICIAN STATEMENT I saw and evaluated the patient. I reviewed the resident's note and discussed the case with the resident. I agree with the resident's findings and plan as documented. SUBJECTIVE: No further chest discomfort. No palpitations/dyspnea/orthopnea/PND. No cough/sputum/hemoptysis. No fever/chills. No nausea/vomiting. OBJECTIVE: Afebrile, hemodynamically Stable. Last Vital Signs Temp Pulse Resp BP Pulse Ox 98.6 F 77 20 155/70 96 07/24/18 09:00 07/24/18 09:00 07/24/18 09:00 07/24/18 09:00 07/24/18 09:00 Heart - S1, S2, SM Lungs - clear to auscultation Abdomen - soft, non-tender. Bowel Sounds normal. Extremities - no calf tenderness. No edema. Laboratory Results - last 24 hr 07/23/18 07/23/18 07/23/18 06:00 16:34 22:15 WBC RBC Hgb Hct MCV MCH MCHC RDW Plt Count MPV Sodium 137 Potassium 3.8 Chloride 108 H Carbon Dioxide 23 Anion Gap 7 L BUN 14 Creatinine 1.2 Est GFR (CKD-EPI)AfAm 65.79 Est GFR (CKD-EPI)NonAf 56.77 POC Glucometer 199 Random Glucose 155 H Calcium 8.5 Phosphorus Magnesium 2.2 Troponin I < 0.02 Triglycerides 153 H Cholesterol 117 Total LDL Cholesterol 62 HDL Cholesterol 35 L TSH 1.55 D Urine Color Yellow Urine Appearance Cloudy Urine pH 6.0 Ur Specific [place] 1.012 Urine Protein Negative Urine Glucose (UA) Negative Urine Ketones Negative Urine Blood Negative Urine Nitrite Negative Urine Bilirubin Negative Urine Urobilinogen 0.2 Ur Leukocyte Esterase 3+ H Urine WBC (Auto) 137 Urine RBC (Auto) 2 Urine Casts (Auto) 3 U Epithel Cells (Auto) 0.9 Urine Bacteria (Auto) 1.0 07/23/18 07/24/18 07/24/18 22:40 05:30 05:30 WBC 11.3 H RBC 4.76 Hgb 14.0 Hct 41.8 MCV 87.8 MCH 29.4 MCHC 33.5 RDW 13.3 Plt Count 291 MPV 7.1 L Sodium 137 Potassium 4.1 Chloride 104 Carbon Dioxide 25 Anion Gap 8 BUN 12 Creatinine 1.3 Est GFR (CKD-EPI)AfAm 59.73 Est GFR (CKD-EPI)NonAf 51.53 POC Glucometer 193 Random Glucose 250 H Calcium 8.7 Phosphorus 2.5 Magnesium 1.9 Troponin I Triglycerides Cholesterol Total LDL Cholesterol HDL Cholesterol TSH Urine Color Urine Appearance Urine pH Ur Specific [place] Urine Protein Urine Glucose (UA) Urine Ketones Urine Blood Urine Nitrite Urine Bilirubin Urine Urobilinogen Ur Leukocyte Esterase Urine WBC (Auto) Urine RBC (Auto) Urine Casts (Auto) U Epithel Cells (Auto) Urine Bacteria (Auto) 07/24/18 05:55 WBC RBC Hgb Hct MCV MCH MCHC RDW Plt Count MPV Sodium Potassium Chloride Carbon Dioxide Anion Gap BUN Creatinine Est GFR (CKD-EPI)AfAm Est GFR (CKD-EPI)NonAf POC Glucometer 273 Random Glucose Calcium Phosphorus Magnesium Troponin I Triglycerides Cholesterol Total LDL Cholesterol HDL Cholesterol TSH Urine Color Urine Appearance Urine pH Ur Specific [place] Urine Protein Urine Glucose (UA) Urine Ketones Urine Blood Urine Nitrite Urine Bilirubin Urine Urobilinogen Ur Leukocyte Esterase Urine WBC (Auto) Urine RBC (Auto) Urine Casts (Auto) U Epithel Cells (Auto) Urine Bacteria (Auto) Current Medications Generic Name Dose Route Start Last Admin Trade Name Freq PRN Reason Stop Dose Admin Amlodipine Besylate 2.5 mg 07/23/18 10:00 07/23/18 09:11 Norvasc - PO 2.5 mg DAILY EUGENIO Administration Artificial Tears 1 drop 07/22/18 22:00 07/23/18 22:36 Artificial Tears OS 1 drp BID EUGENIO Administration Aspirin 81 mg 07/23/18 10:00 07/23/18 09:11 Asa - PO 81 mg DAILY EUGENIO Administration Atorvastatin Calcium 40 mg 07/22/18 22:00 07/23/18 22:35 Lipitor - PO 40 mg HS EUGENIO Administration Bupropion HCl 150 mg 07/23/18 10:00 07/23/18 09:11 Wellbutrin Xl - PO 150 mg DAILY EUGENIO Administration Docusate Sodium 200 mg 07/22/18 22:00 07/23/18 22:35 Colace - PO 200 mg HS EUGENIO Administration Enoxaparin Sodium 40 mg 07/23/18 10:00 07/23/18 09:11 Lovenox - SQ 40 mg DAILY EUGENIO Administration Insulin Aspart 1 vial 07/22/18 22:00 07/24/18 06:29 Novolog Vial Sliding Scale - SQ 6 units ACHS EUGENIO Administration Protocol Memantine 5 mg 07/23/18 10:00 07/23/18 09:11 Namenda - PO 5 mg DAILY EUGENIO Administration Tamsulosin HCl 0.4 mg 07/23/18 08:30 07/23/18 09:11 Flomax - PO 0.4 mg 0830 EUGENIO Administration Trazodone HCl 50 mg 07/22/18 22:00 07/23/18 22:35 Desyrel - PO 50 mg HS EUGENIO Administration ASSESSMENT AND PLAN: 78 year old male with history of Dementia, hypertension, hyperlipidemia, DM 2, Melanoma status post multiple resections (most recent R ear and left proximal anterior chest), presents with intermittent intermittent epigastric abdominal discomfort and associated chest tightness. No associated SOB/palps/diaphoresis/ nausea/vomiting. 1. Atypical Chest Pain ECG - SR, no acute ST changes TnI neg x2 Echo - normal LV function, "hemodynamically significant valvular cannot be excluded" Cardiology consulted - recommend out-patient follow up for Echo findings. NM Stress Test today. Continue Aspirin, Simvastatin 2. DM 2 - Uncontrolled, A1c 8.2 Maintain on insulin sliding scale. Glargine and Glimepiride held. 3. HTN - Continue Norvasc. 4. HLD - Continue Simvastatin. 5. BPH - Continue Flomax 6. Dementia with Depression - Continue Namenda and Wellbutrin 7. Bladder Wall Thickening with dilatation of distal ureters on CT A/P - for out -patient Urology follow up. 8. R Nephrolithiasis, asymptomatic - for out-patient Urology referral. 9. Cholelithiasis - no signs of cholecystitis. RUQ non-tender. No signs of biliary colic. DVT Px - Lovenox SQ
[2018-07-24] MEDS: TAMSULOSIN HCL 0.4 MG CAP PO SCH (13:16)
[2018-07-24] MEDS: ENOXAPARIN NA (PORCINE) 40 MG/0.4 ML DISP.SYRIN SQ SCH (13:17)
[2018-07-24] MEDS: ASPIRIN 81 MG CHEWABLE TABLETS PO SCH (13:17)
[2018-07-24] MEDS: MEMANTINE HCL 5 MG TABLET (UD) PO SCH (13:17)
[2018-07-24] MEDS: ARTIFICIAL TEARS (POLYVINYL ALCOHOL) OPTH DROPS OS SCH (13:20)
--- NOTE | 2018-07-24 14:41 | DS ---
Physical Exam: SUBJECTIVE: Patient seen and examined at bedside- no acute events overnight' patient states that he is feeling well and is anxious to go home; denies any CP. /SOB/N/V patient is going for stress test this am OBJECTIVE: Vital Signs Period Temp Pulse Resp BP Sys/Winslow Pulse Ox Last 24 Hr 97.8 F-98.6 F 77-88 18-20 132-162/68-85 96-98 PHYSICAL EXAM GENERAL: The patient is awake, alert, and fully oriented, in no acute distress. EYES: PEERLA: EOMI no scleral icterus NECK: no JVD; no lymphadenopathy LUNGS: CTA B/L; no rales, rhonchi or wheezing HEART: Regular rate and rhythm, S1, S2 without murmur, rub or gallop. ABDOMEN: Soft, nontender, nondistended, normoactive bowel sounds, no guarding, no rebound, no hepatosplenomegaly, no masses. EXTREMITIES: 2+ pulses, warm, well-perfused, no edema. PSYCH: Normal mood, normal affect. SKIN: Warm, dry, normal turgor, no rashes or lesions noted. LABS Laboratory Results - last 24 hr 07/23/18 07/23/18 07/23/18 06:00 16:34 22:15 WBC RBC Hgb Hct MCV MCH MCHC RDW Plt Count MPV Sodium Potassium Chloride Carbon Dioxide Anion Gap BUN Creatinine Est GFR (CKD-EPI)AfAm Est GFR (CKD-EPI)NonAf POC Glucometer 199 Random Glucose Calcium Phosphorus Magnesium Troponin I < 0.02 Urine Color Yellow Urine Appearance Cloudy Urine pH 6.0 Ur Specific [place]pping 1.012 Urine Protein Negative Urine Glucose (UA) Negative Urine Ketones Negative Urine Blood Negative Urine Nitrite Negative Urine Bilirubin Negative Urine Urobilinogen 0.2 Ur Leukocyte Esterase 3+ H Urine WBC (Auto) 137 Urine RBC (Auto) 2 Urine Casts (Auto) 3 U Epithel Cells (Auto) 0.9 Urine Bacteria (Auto) 1.0 07/23/18 07/24/18 07/24/18 22:40 05:30 05:30 WBC 11.3 H RBC 4.76 Hgb 14.0 Hct 41.8 MCV 87.8 MCH 29.4 MCHC 33.5 RDW 13.3 Plt Count 291 MPV 7.1 L Sodium 137 Potassium 4.1 Chloride 104 Carbon Dioxide 25 Anion Gap 8 BUN 12 Creatinine 1.3 Est GFR (CKD-EPI)AfAm 59.73 Est GFR (CKD-EPI)NonAf 51.53 POC Glucometer 193 Random Glucose 250 H Calcium 8.7 Phosphorus 2.5 Magnesium 1.9 Troponin I Urine Color Urine Appearance Urine pH Ur Specific [place] Urine Protein Urine Glucose (UA) Urine Ketones Urine Blood Urine Nitrite Urine Bilirubin Urine Urobilinogen Ur Leukocyte Esterase Urine WBC (Auto) Urine RBC (Auto) Urine Casts (Auto) U Epithel Cells (Auto) Urine Bacteria (Auto) 07/24/18 07/24/18 05:55 13:13 WBC RBC Hgb Hct MCV MCH MCHC RDW Plt Count MPV Sodium Potassium Chloride Carbon Dioxide Anion Gap BUN Creatinine Est GFR (CKD-EPI)AfAm Est GFR (CKD-EPI)NonAf POC Glucometer 273 243 Random Glucose Calcium Phosphorus Magnesium Troponin I Urine Color Urine Appearance Urine pH Ur Specific [place] Urine Protein Urine Glucose (UA) Urine Ketones Urine Blood Urine Nitrite Urine Bilirubin Urine Urobilinogen Ur Leukocyte Esterase Urine WBC (Auto) Urine RBC (Auto) Urine Casts (Auto) U Epithel Cells (Auto) Urine Bacteria (Auto) ab pelvis CT: cholethiasis; nonobstrucing L renal stone; thickened urinary bladder wall bladder US: thickened urinary bladder wall HOSPITAL COURSE: Date of Admission:07/22/18 This is an 78 year old male with a past medical history of hypertension, hyperlipidemia, dementia, type II diabetes, melanoma status post multiple resections (latest 2 days ago on R ear), presenting to the hospital from [facility] for several months of mild, intermittent epigastric abdominal discomfort and tightness. Patient reports this tightness comes and goes, with the last episode being last night. He reports telling his doctor at the [facility] living facility who sent him to the emergency room for further evaluation. He reports these episodes occurring on the right side hand on the left side of his epigastrium that are non-radiating and only a 2/10 in severity. Patient denies any symptoms of shortness of breath, chest pain, nausea , vomiting, diarrhea, fevers, chills.Denies any recent travel or sick contacts.Denies any previous cardiac workup including catheterization or echocardiograms. Denies having a home tissue technician. patients troponins were negative X3; he got an echo cardiogram of his heart which showed mild to moderate aortic stenosis and was seen by cardio who suggetsed to have him f/u as an outpatient and repea.t he underwent a nuclear stress test which was normal. he was stable to be discharged back home with an increase in his statin dose in addition to a f/u with cardio, urology and surgery given the findings on his ab/pelvis CT and bladder ultrasound Date of Discharge: 07/24/18 Minutes to complete discharge: 35 Discharge Summary Reason For Visit: CHEST PAIN Current Active Problems Ruled out for myocardial infarction (Acute) Condition: Stable - Instructions Diet, Activity, Other Instructions: You came to the emergency room with complaints of chest and epigastric pain. We measures your cardiac enzymes, did an EKG of your heart as well as a stress test all of which were normal. Testing 1.We also did an echocardiogram of your heart which showed some narrowing of your aortic valve for which you will need to follow up with a tissue technician upon discharge for further evaluation. 2. A cat scan was done of your abdomen and pelvis which showed the presence of gallstones, for which we will be referring you to a surgeon for further surgical evaluation to assess if your gallbladder need to be removed or not. 3. In addition, on bladder ultrasound your bladder wall was shown to be thickened for which we are providing you with a urology referral for further evaluation. Your symptoms improved and you were stable to be discharged home. Please resume all of your home medications in addition: We increased your statin dose of Lipitor to 40mg to be taken daily. Please follow up with the tissue technician, Dr. Mora within one week Please follow up with your primary care physician at the [facility] within one week Please follow up with the urologist, Dr. Trujillo, to evaluate the findings seen on the bladder ultrasound Please follow up with the surgeon, Dr. Millard, to further evaluate the presence of gallstones and possible need for surgical intervention *if you begin to experience worsening chest pains, shortness of breath, nausea/ vomiting please return to the emergency room immediately Referrals: Vineet Trujillo MD [Staff Physician] - 1 Week Jose Millard MD [Staff Physician] - 1 Week Souleymane Mora MD [Staff Physician] - 1 Week Disposition: HOME - Home Medications Comprehensive Discharge Medication List: Ambulatory Orders Amlodipine Besylate 2.5 mg PO DAILY 12/17/14 Bupropion HCl [Bupropion Xl] 150 mg PO DAILY 12/17/14 Memantine HCl 5 mg PO DAILY 12/17/14 Aspirin 81 mg PO DAILY 07/22/18 Carboxymethylcellulose Sodium [Lubricant Eye Drop] 15 ml OS BID 07/22/18 Docusate Sodium [Colace] 200 mg PO HS 07/22/18 Glimepiride [Amaryl -] 3 mg PO DAILY 07/22/18 Guaifenesin 400 mg PO PRN 07/22/18 Insulin Glargine,Hum.rec.anlog [Lantus Solostar] 30 units SQ DAILY 07/22/18 Mupirocin Cream [Bactroban 2% Cream -] 1 applic TP BID 07/22/18 Tamsulosin HCl [Flomax] 1 tab PO DAILY 07/22/18 traZODone HCL [Trazodone HCl] 50 mg PO HS 07/22/18 Atorvastatin Ca [Lipitor] 40 mg PO HS #30 tablet 07/24/18 Problem List - Problems (1) Diabetes Code(s): E11.9 - TYPE 2 DIABETES MELLITUS WITHOUT COMPLICATIONS (2) HTN (hypertension) Code(s): I10 - ESSENTIAL (PRIMARY) HYPERTENSION
== END 2018-07-24 15:47 | disposition home or self-care (01) ==
LOC: JER 11:47 → JERBED 16:46 → INTOOBSV 16:46 → UNDOADMOB 16:46 → JERBED 19:58 → J4W 07-23 14:36 → JERBED 07-23 14:36 → J4W 07-23 14:36
PROVIDERS: ADMIT Internal Medicine
PROC: 3E033GC Introduction of Other Therapeutic Substance into Peripheral Vein, Percutaneous Approach (ICD-10-PCS; principal; 2018-07-22)
PROC: 3E013VG Introduction of Insulin into Subcutaneous Tissue, Percutaneous Approach (ICD-10-PCS; 2018-07-22)
PROC: 3E013GC Introduction of Other Therapeutic Substance into Subcutaneous Tissue, Percutaneous Approach (ICD-10-PCS; 2018-07-22)
DX: R07.89 Other chest pain (principal); D72.829 Elevated white blood cell count, unspecified; N32.89 Other specified disorders of bladder; I10 Essential (primary) hypertension; E78.5 Hyperlipidemia, unspecified; E11.9 Type 2 diabetes mellitus without complications; F03.90 Unspecified dementia, unspecified severity, without behavioral disturbance, psychotic disturbance, mood disturbance, and anxiety; Z79.4 Long term (current) use of insulin; Z79.82 Long term (current) use of aspirin; N40.0 Benign prostatic hyperplasia without lower urinary tract symptoms
CPT/HCPCS: 36415; 71045-TC-FY; 74177-TC; 76856-TC; 78452-TC; 80048; 80053; 80061; 81003; 82150; 82550; 82553; 82962; 83036; 83690; 83721; 83735; 84100; 84443; 84484; 85025; 85027; 85610; 87040; 87086; 93005; 93010; 93017; 93306-TC; 96372; 96374; 96375; 99285-25; A9502; G0378; J2785

== ENCOUNTER 2021-05-05 13:24 | Emergency (ER) | payer OTHER ==
[2021-05-05 13:47] VITALS: BP 157/68; PULSE 70; TEMP 97.9; BMI 29.7
== END 2021-05-05 15:32 | disposition home or self-care (01) ==
LOC: JER 13:24
DX: R00.1 Bradycardia, unspecified (principal); I44.4 Left anterior fascicular block
CPT/HCPCS: 93005; 93010; 99283-25

== ENCOUNTER 2021-07-21 10:39 | Emergency (ER) | payer OTHER ==
[2021-07-21 11:01] VITALS: TEMP 97.9
[2021-07-21 14:06] VITALS: BP 128/74; PULSE 66
== END 2021-07-21 14:06 | disposition home or self-care (01) ==
LOC: JER 10:39
DX: S09.90XA Unspecified injury of head, initial encounter (principal); W05.0XXA Fall from non-moving wheelchair, initial encounter
CPT/HCPCS: 70450-TC; 72125-TC; 93005; 93010; 99285-25

== ENCOUNTER 2021-09-14 21:33 | Emergency (ER) | payer OTHER ==
[2021-09-14 21:49] VITALS: BP 144/68; PULSE 76; TEMP 98.1; BMI 29.7
== END 2021-09-15 05:04 | disposition home or self-care (01) ==
LOC: JER 21:33
DX: K04.7 Periapical abscess without sinus (principal)
CPT/HCPCS: 99283-25

== ENCOUNTER 2023-05-30 10:19 | Emergency (ER) | payer OTHER ==
[2023-05-30 10:49] VITALS: BP 160/50; PULSE 75; RESP 19; TEMP 98.8; BMI 26.9
== END 2023-05-30 14:24 | disposition home or self-care (01) ==
LOC: JER 10:19
DX: M54.9 Dorsalgia, unspecified (principal); G89.29 Other chronic pain; W05.0XXA Fall from non-moving wheelchair, initial encounter
CPT/HCPCS: 70450-TC; 71045-TC-FY; 72125-TC; 72170-TC-FY; 93005; 93010; 99284-25

== ENCOUNTER 2023-06-05 16:11 | Inpatient (IN) | payer OTHER ==
[2023-06-05] MEDS ORDERED: ACETAMINOPHEN INJECTION 100 ML IVPB ONE (17:19)
[2023-06-05] MEDS ORDERED: PIPERACILLIN/TAZOB 4.5 GM 4.5 GM/100 ML BAG IVPB ONE (17:19)
[2023-06-05] MEDS: SODIUM CHLORIDE 0.9% 500 ML INFUS.BAG IV ONE (17:20)
[2023-06-05] MEDS: ACETAMINOPHEN 1000 MG/100 ML BAG IVPB ONE (17:20)
[2023-06-05] MEDS: VANCOMYCIN 1,000 MG in DEXTROSE 5%-WATER - 250 ML IVPB ONE (17:20)
[2023-06-05] MEDS ORDERED: VANCOMYCIN 1 GRAM (PRE-DOCKED) 1,000 MG/250 ML BAG IVPB ONE (17:24)
[2023-06-05 17:25] LABS: VENOUS BASE EXCESS 0.7 mmol/L (-2-2); VENOUS PCO2 38.2 mmHg (38-52); VENOUS PH 7.432 (7.310-7.410)
[2023-06-05] MEDS: PIPERACILLIN/TAZOBACTAM 4.5 GM VIAL IVPB ONE (17:25)
[2023-06-05 17:41] LABS: HEMATOCRIT 30.4 % (35.4-49); HEMOGLOBIN 10.1 GM/dL (11.7-16.9); MCH 29.7 pg (25.7-33.7); MCHC 33.3 g/dl (32.0-35.9); MEAN CELL VOLUME 89.3 fl (80-96); MEAN PLT VOLUME 6.5 fl (7.5-11.1); PLATELET COUNT 264 10^3/uL (134-434); RBC 3.41 M/mm3 (4.00-5.60); RDW 14.6 % (11.9-15.9); WHITE BLOOD COUNT 22.8 K/mm3 (4.0-10.0)
[2023-06-05 17:50] LABS: INR 1.48 (0.83-1.09); PROTHROMBIN TIME (PATIENT) 17.1 SEC (9.7-13.0)
[2023-06-05 17:53] LABS: ACTIVATED PTT 32.5 SECONDS (25.2-36.5)
[2023-06-05 18:12] LABS: EPI CELLS 2 /uL (0-25.1); HYALINE CASTS 1 /uL (0-3.1); PH,URINE 5.5 (5.0-8.0); URINE APPEARANCE TURBID; URINE BACTERIA 6139 /uL (0-1359); URINE BILIRUBIN NEGATIVE (NEGATIVE); URINE COLOR YELLOW; URINE GLUCOSE (UA) NEGATIVE (NEGATIVE); URINE KETONE NEGATIVE (NEGATIVE); URINE LEUK ESTERASE 3+ (NEGATIVE); URINE NITRITE NEGATIVE (NEGATIVE); URINE PROTEIN 1+ (NEGATIVE); URINE RBC 34 /uL (0-23.9); URINE UROBILINOGEN 0.2 mg/dL (0.2-1.0); URINE WBC 1636 /uL (0-25.8)
[2023-06-05 18:15] LABS: ANISOCYTOSIS 1+; MACROCYTOSIS 0; OVALOCYTE 1+; POTASSIUM 4.3 mmol/L (3.5-5.1)
[2023-06-05 18:18] LABS: ALBUMIN 2.8 g/dl (3.4-5.0); CALCIUM 8.3 mg/dL (8.5-10.1)
[2023-06-05 18:20] LABS: BLOOD UREA NITROGEN 18.6 mg/dL (7-18)
[2023-06-05 18:21] LABS: CREATININE 1.5 mg/dL (0.55-1.3)
[2023-06-05] MEDS: LACTATED RINGERS SOLUTION 1000 ML INFUS.BAG IV ONE (18:22)
[2023-06-05 18:23] LABS: BILIRUBIN,TOTAL 0.7 mg/dL (0.2-1); TOT PROT 5.8 g/dl (6.4-8.2)
[2023-06-05 18:24] LABS: LACTIC ACID 2.5 mmol/L (0.4-2.0)
[2023-06-05] MEDS: LACTATED RINGERS SOLUTION 1,000 ML/1,000 ML INFUS.BAG IV SCH (18:57)
[2023-06-05] MEDS ORDERED: DOCUSATE SODIUM 100 MG CAPSULE (FP) PO PRN (22:49)
[2023-06-06] MEDS: NITROGLYCERIN 2% OINTMENT - 1GM PACKET TD ONE (02:07)
[2023-06-06 03:44] VITALS: BMI 26.4
[2023-06-06] MEDS ORDERED: VANCOMYCIN/WATER 1250 MG 1,250 MG/250 ML BAG IVPB SCH (05:15)
[2023-06-06] MEDS: PIPERACILLIN/TAZOB 3.375 GM 3.375 GM in DEXTROSE 5%-WATER - 50 ML IVPB ONE (05:36)
[2023-06-06] MEDS: VANCOMYCIN/WATER 1250 MG 1,250 MG/250 ML BAG IVPB SCH (05:39)
[2023-06-06] MEDS: ACETAMINOPHEN 1000 MG/100 ML BAG IVPB PRN (05:51)
[2023-06-06] MEDS ORDERED: INSULIN (NOVOLOG) ASPART 100 UNITS/ML 10ML VIAL ONE (06:05)
[2023-06-06] MEDS: INSULIN ASPART SLIDING SCALE (NOVOLOG) 1 VIAL SQ SCH (06:25)
[2023-06-06] MEDS ORDERED: GUAIFENESIN 400 MG PO SCH (08:00)
[2023-06-06 08:44] LABS: BASO % 0.2 % (0-2.0); EOS % 0.2 % (0-4.5); HEMATOCRIT 29.3 % (35.4-49); HEMOGLOBIN 9.8 GM/dL (11.7-16.9); MCHC 33.4 g/dl (32.0-35.9); MEAN CELL VOLUME 89.7 fl (80-96); MEAN PLT VOLUME 6.5 fl (7.5-11.1); MONO % 4.8 % (3.8-10.2); NEUT % 87.8 % (42.8-82.8); PLATELET COUNT 231 10^3/uL (134-434); RBC 3.27 M/mm3 (4.00-5.60); RDW 14.3 % (11.9-15.9); WHITE BLOOD COUNT 15.4 K/mm3 (4.0-10.0)
[2023-06-06 08:46] LABS: INR 1.47 (0.83-1.09)
[2023-06-06 09:02] LABS: POTASSIUM 3.8 mmol/L (3.5-5.1)
[2023-06-06 09:14] LABS: BLOOD UREA NITROGEN 15.4 mg/dL (7-18); CALCIUM 7.8 mg/dL (8.5-10.1); MAGNESIUM 1.5 mg/dL (1.8-2.4)
[2023-06-06 09:16] LABS: CREATININE 1.2 mg/dL (0.55-1.3)
[2023-06-06 09:17] LABS: PHOSPHOROUS 1.6 mg/dL (2.5-4.9)
[2023-06-06] MEDS ORDERED: amLODIPine BESYLATE 2.5 MG TABLET (FP) PO SCH (10:00)
[2023-06-06] MEDS ORDERED: PATIENT'S OWN MEDICATION (NON-FORMULARY) (Carboxymethylcellulose Sodium [Lubricant Eye Dro OS SCH (10:00)
[2023-06-06] MEDS: MEMANTINE HCL 5 MG TABLET (UD) PO SCH (10:02)
[2023-06-06] MEDS: PANTOPRAZOLE 20 MG TABLET PO SCH (10:02)
[2023-06-06] MEDS: TAMSULOSIN HCL 0.4 MG CAP PO SCH (10:02)
[2023-06-06] MEDS: CHOLECALCIFEROL (VIT D3) 1,000 UNIT (25 MCG) TABLET PO SCH (10:02)
[2023-06-06] MEDS: ASCORBIC ACID 500 MG TABLET (FP) PO SCH (10:03)
[2023-06-06] MEDS: ASPIRIN 81 MG CHEWABLE TABLETS PO SCH (10:03)
[2023-06-06] MEDS: ENOXAPARIN NA (PORCINE) 40 MG/0.4 ML DISP.SYRIN SQ SCH (10:03)
[2023-06-06] MEDS: ARTIFICIAL TEARS OPHTHALMIC DROPS OS SCH (12:00)
[2023-06-06] MEDS ORDERED: PIPERACILLIN/TAZOB 3.375 GM 3.375 GM in DEXTROSE 5%-WATER - 50 ML IVPB SCH (12:00)
[2023-06-06] MEDS: NAPH,MB-DB/K PH,MBDB POWDER PACKET PO SCH (12:09)
[2023-06-06] MEDS: MAGNESIUM 1GM/D5W 100ML - 100 ML IVPB IVPB ONE (12:09)
[2023-06-06] MEDS: INSULIN (LEVEMIR) 100 UNITS/ML UNITS SQ SCH (14:55)
[2023-06-06] MEDS: PIPERACILLIN/TAZOB 3.375 GM 3.375 GM in DEXTROSE 5%-WATER - 50 ML IVPB SCH ×2 (14:57→17:53)
[2023-06-06] MEDS: traZODone HCL 50 MG TABLET (FP) PO SCH (21:52)
[2023-06-06] MEDS: ATORVASTATIN CA 40 MG TABLET (FP) PO SCH (21:52)
[2023-06-06] MEDS: DOCUSATE SODIUM 100 MG CAPSULE (FP) PO SCH (21:52)
[2023-06-06] MEDS ORDERED: INSULIN (LEVEMIR) 100 UNITS/ML UNITS SQ SCH (22:00)
[2023-06-07 07:31] LABS: EOS % 2.8 % (0-4.5); HEMATOCRIT 30.7 % (35.4-49); HEMOGLOBIN 10.4 GM/dL (11.7-16.9); LYMPH % 20.4 % (8-40); MCH 30.3 pg (25.7-33.7); MCHC 33.9 g/dl (32.0-35.9); MEAN CELL VOLUME 89.3 fl (80-96); MEAN PLT VOLUME 6.9 fl (7.5-11.1); MONO % 7.6 % (3.8-10.2); NEUT % 68.2 % (42.8-82.8); PLATELET COUNT 249 10^3/uL (134-434); RBC 3.44 M/mm3 (4.00-5.60); RDW 14.4 % (11.9-15.9); WHITE BLOOD COUNT 13.9 K/mm3 (4.0-10.0)
[2023-06-07 07:47] LABS: POTASSIUM 3.8 mmol/L (3.5-5.1)
[2023-06-07 07:51] LABS: ALBUMIN 2.3 g/dl (3.4-5.0); BLOOD UREA NITROGEN 12.9 mg/dL (7-18); MAGNESIUM 1.9 mg/dL (1.8-2.4)
[2023-06-07 07:54] LABS: CREATININE 1.1 mg/dL (0.55-1.3)
[2023-06-07 07:55] LABS: BILIRUBIN,TOTAL 0.5 mg/dL (0.2-1); TOT PROT 4.9 g/dl (6.4-8.2)
[2023-06-07] MEDS: amLODIPine BESYLATE 2.5 MG TABLET (FP) PO SCH (11:16)
[2023-06-07] MEDS: MUPIROCIN CA 2% TOPICAL CREAM 15 GM TUBE TP SCH (11:57)
[2023-06-07 21:21] VITALS: RESP 18
[2023-06-08] MEDS: PIPERACILLIN/TAZOB 3.375 GM 3.375 GM in DEXTROSE 5%-WATER - 50 ML IVPB SCH (01:03)
[2023-06-08] MEDS: INSULIN ASPART SLIDING SCALE (NOVOLOG) 1 VIAL SQ SCH (06:25)
[2023-06-08] MEDS: INSULIN (LEVEMIR) 100 UNITS/ML UNITS SQ SCH (06:26)
[2023-06-08 10:05] LABS: BASO % 0.5 % (0-2.0); EOS % 2.6 % (0-4.5); HEMATOCRIT 32.8 % (35.4-49); HEMOGLOBIN 10.8 GM/dL (11.7-16.9); LYMPH % 20.1 % (8-40); MCH 29.8 pg (25.7-33.7); MEAN CELL VOLUME 90.3 fl (80-96); MEAN PLT VOLUME 6.7 fl (7.5-11.1); MONO % 5.7 % (3.8-10.2); NEUT % 71.1 % (42.8-82.8); PLATELET COUNT 270 10^3/uL (134-434); RBC 3.63 M/mm3 (4.00-5.60); RDW 14.8 % (11.9-15.9); WHITE BLOOD COUNT 13.5 K/mm3 (4.0-10.0)
[2023-06-08] MEDS: MEMANTINE HCL 5 MG TABLET (UD) PO SCH (10:08)
[2023-06-08] MEDS: PANTOPRAZOLE 20 MG TABLET PO SCH (10:08)
[2023-06-08] MEDS: ENOXAPARIN NA (PORCINE) 40 MG/0.4 ML DISP.SYRIN SQ SCH (10:08)
[2023-06-08] MEDS: TAMSULOSIN HCL 0.4 MG CAP PO SCH (10:08)
[2023-06-08] MEDS: ASPIRIN 81 MG CHEWABLE TABLETS PO SCH (10:08)
[2023-06-08] MEDS: CHOLECALCIFEROL (VIT D3) 1,000 UNIT (25 MCG) TABLET PO SCH (10:08)
[2023-06-08] MEDS: ASCORBIC ACID 500 MG TABLET (FP) PO SCH (10:08)
[2023-06-08] MEDS: amLODIPine BESYLATE 2.5 MG TABLET (FP) PO SCH (10:08)
[2023-06-08] MEDS: NAPH,MB-DB/K PH,MBDB POWDER PACKET PO SCH (10:09)
[2023-06-08 10:24] LABS: POTASSIUM 4.1 mmol/L (3.5-5.1)
[2023-06-08 10:27] LABS: CALCIUM 8.5 mg/dL (8.5-10.1)
[2023-06-08 10:28] LABS: BLOOD UREA NITROGEN 8.2 mg/dL (7-18)
[2023-06-08 10:31] LABS: CREATININE 1.1 mg/dL (0.55-1.3)
[2023-06-08] MEDS: ARTIFICIAL TEARS OPHTHALMIC DROPS OS SCH (12:24)
[2023-06-08] MEDS: MUPIROCIN CA 2% TOPICAL CREAM 15 GM TUBE TP SCH (12:24)
[2023-06-08] MEDS: DOCUSATE SODIUM 100 MG CAPSULE (FP) PO SCH (22:32)
[2023-06-08] MEDS: traZODone HCL 50 MG TABLET (FP) PO SCH (22:32)
[2023-06-08] MEDS: ATORVASTATIN CA 40 MG TABLET (FP) PO SCH (22:32)
[2023-06-09 08:59] LABS: BASO % 0.6 % (0-2.0); EOS % 2.8 % (0-4.5); HEMATOCRIT 32.5 % (35.4-49); HEMOGLOBIN 10.9 GM/dL (11.7-16.9); LYMPH % 20.3 % (8-40); MCH 30.3 pg (25.7-33.7); MCHC 33.6 g/dl (32.0-35.9); MEAN PLT VOLUME 6.7 fl (7.5-11.1); MONO % 6.4 % (3.8-10.2); NEUT % 69.9 % (42.8-82.8); PLATELET COUNT 297 10^3/uL (134-434); RBC 3.61 M/mm3 (4.00-5.60); RDW 14.6 % (11.9-15.9); WHITE BLOOD COUNT 13.3 K/mm3 (4.0-10.0)
[2023-06-09 09:14] LABS: POTASSIUM 4.4 mmol/L (3.5-5.1)
[2023-06-09 09:23] LABS: CALCIUM 8.6 mg/dL (8.5-10.1)
[2023-06-09 09:24] LABS: BLOOD UREA NITROGEN 10.7 mg/dL (7-18)
[2023-06-09 09:26] LABS: CREATININE 1.2 mg/dL (0.55-1.3)
[2023-06-09] MEDS: FINASTERIDE 5 MG TABLET (FP) PO SCH (09:32)
[2023-06-09] MEDS: LACTATED RINGERS SOLUTION 1,000 ML/1,000 ML INFUS.BAG IV SCH (22:30)
[2023-06-10 08:32] LABS: BASO % 0.5 % (0-2.0); HEMATOCRIT 30.1 % (35.4-49); LYMPH % 25.5 % (8-40); MCH 30.1 pg (25.7-33.7); MCHC 33.2 g/dl (32.0-35.9); MEAN CELL VOLUME 90.6 fl (80-96); MEAN PLT VOLUME 6.7 fl (7.5-11.1); MONO % 8.1 % (3.8-10.2); NEUT % 61.9 % (42.8-82.8); PLATELET COUNT 290 10^3/uL (134-434); RBC 3.32 M/mm3 (4.00-5.60); RDW 14.5 % (11.9-15.9)
[2023-06-10 08:41] LABS: POTASSIUM 4.4 mmol/L (3.5-5.1)
[2023-06-10 08:44] LABS: CALCIUM 8.6 mg/dL (8.5-10.1)
[2023-06-10 08:45] LABS: ALBUMIN 2.4 g/dl (3.4-5.0); BLOOD UREA NITROGEN 11.9 mg/dL (7-18)
[2023-06-10 08:49] LABS: CREATININE 1.3 mg/dL (0.55-1.3)
[2023-06-10 08:50] LABS: BILIRUBIN,TOTAL 0.5 mg/dL (0.2-1)
[2023-06-10 08:52] LABS: TOT PROT 5.2 g/dl (6.4-8.2)
[2023-06-11 09:03] LABS: BASO % 0.6 % (0-2.0); EOS % 3.6 % (0-4.5); HEMATOCRIT 30.7 % (35.4-49); HEMOGLOBIN 10.1 GM/dL (11.7-16.9); MCH 30.2 pg (25.7-33.7); MCHC 33.1 g/dl (32.0-35.9); MEAN CELL VOLUME 91.2 fl (80-96); MEAN PLT VOLUME 6.7 fl (7.5-11.1); MONO % 5.4 % (3.8-10.2); NEUT % 69.4 % (42.8-82.8); PLATELET COUNT 317 10^3/uL (134-434); RBC 3.36 M/mm3 (4.00-5.60); RDW 14.3 % (11.9-15.9); WHITE BLOOD COUNT 14.1 K/mm3 (4.0-10.0)
[2023-06-11 09:37] LABS: ALBUMIN 2.5 g/dl (3.4-5.0); BILIRUBIN,TOTAL 0.6 mg/dL (0.2-1); BLOOD UREA NITROGEN 13.7 mg/dL (7-18); CALCIUM 8.6 mg/dL (8.5-10.1); CREATININE 1.2 mg/dL (0.55-1.3); TOT PROT 5.7 g/dl (6.4-8.2)
[2023-06-11 15:33] LABS: EPI CELLS >36 /uL (0-25.1); HYALINE CASTS 5 /uL (0-3.1); PH,URINE 7.5 (5.0-8.0); URINE APPEARANCE CLEAR; URINE BACTERIA 17 /uL (0-1359); URINE BILIRUBIN NEGATIVE (NEGATIVE); URINE COLOR YELLOW; URINE GLUCOSE (UA) NEGATIVE (NEGATIVE); URINE KETONE NEGATIVE (NEGATIVE); URINE LEUK ESTERASE 1+ (NEGATIVE); URINE NITRITE NEGATIVE (NEGATIVE); URINE PROTEIN 1+ (NEGATIVE); URINE RBC 32 /uL (0-23.9); URINE UROBILINOGEN 0.2 mg/dL (0.2-1.0); URINE WBC 131 /uL (0-25.8)
[2023-06-11] MEDS: AMOX TR/POT CLAV 875MG/125MG TABLETS (FP) PO SCH (17:32)
[2023-06-12 10:00] LABS: BASO % 0.8 % (0-2.0); EOS % 3.9 % (0-4.5); HEMATOCRIT 31.6 % (35.4-49); HEMOGLOBIN 10.6 GM/dL (11.7-16.9); LYMPH % 22.4 % (8-40); MCH 30.1 pg (25.7-33.7); MCHC 33.6 g/dl (32.0-35.9); MEAN CELL VOLUME 89.5 fl (80-96); MEAN PLT VOLUME 6.6 fl (7.5-11.1); MONO % 6.2 % (3.8-10.2); NEUT % 66.7 % (42.8-82.8); PLATELET COUNT 327 10^3/uL (134-434); RBC 3.53 M/mm3 (4.00-5.60); RDW 14.9 % (11.9-15.9); WHITE BLOOD COUNT 12.5 K/mm3 (4.0-10.0)
[2023-06-12 10:06] LABS: POTASSIUM 4.1 mmol/L (3.5-5.1)
[2023-06-12 10:08] LABS: CALCIUM 8.8 mg/dL (8.5-10.1)
[2023-06-12 10:09] LABS: BLOOD UREA NITROGEN 14.7 mg/dL (7-18)
[2023-06-12 10:12] LABS: CREATININE 1.2 mg/dL (0.55-1.3)
[2023-06-12 19:26] VITALS: BP 113/53; PULSE 67; TEMP 98.2
== END 2023-06-12 19:41 | DRG 872 ==
LOC: JER 16:11 → JERBED 21:25 → J4W 06-06 04:05 → J5S 06-07 21:57
PROVIDERS: ADMIT Internal Medicine; ATTEND Internal Medicine
DX: A41.9 Sepsis, unspecified organism (principal); E87.1 Hypo-osmolality and hyponatremia; N13.30 Unspecified hydronephrosis; N39.0 Urinary tract infection, site not specified; E87.20 Acidosis, unspecified; K21.9 Gastro-esophageal reflux disease without esophagitis; D64.9 Anemia, unspecified; F03.90 Unspecified dementia, unspecified severity, without behavioral disturbance, psychotic disturbance, mood disturbance, and anxiety; E78.5 Hyperlipidemia, unspecified; I25.10 Atherosclerotic heart disease of native coronary artery without angina pectoris; E11.22 Type 2 diabetes mellitus with diabetic chronic kidney disease; I12.9 Hypertensive chronic kidney disease with stage 1 through stage 4 chronic kidney disease, or unspecified chronic kidney disease; N18.9 Chronic kidney disease, unspecified; N40.0 Benign prostatic hyperplasia without lower urinary tract symptoms; D52.9 Folate deficiency anemia, unspecified; E83.42 Hypomagnesemia; E83.39 Other disorders of phosphorus metabolism
CPT/HCPCS: 0241U-QW; 36415; 71045-TC-FY; 71260-TC; 74177-TC; 76705-TC; 80048; 80053; 81003; 82550; 82553; 82803; 82962; 83036; 83605; 83690; 83735; 84100; 84484; 85025; 85610; 85730; 86850; 86900; 86901; 87040; 87086; 87635; 93005; 93010; 97116-GP; 97161-GP; 99285-25; J0131; Q9967

== ENCOUNTER 2023-07-04 22:43 | Inpatient (IN) | payer OTHER ==
[2023-07-05 00:30] LABS: BASO % 0.3 % (0-2.0); EOS % 0.3 % (0-4.5); HEMATOCRIT 33.1 % (35.4-49); LYMPH % 10.3 % (8-40); MCH 29.5 pg (25.7-33.7); MCHC 33.3 g/dl (32.0-35.9); MEAN CELL VOLUME 88.7 fl (80-96); MONO % 8.2 % (3.8-10.2); NEUT % 80.9 % (42.8-82.8); PLATELET COUNT 247 10^3/uL (134-434); RBC 3.73 M/mm3 (4.00-5.60); RDW 14.6 % (11.9-15.9); WHITE BLOOD COUNT 17.6 K/mm3 (4.0-10.0)
[2023-07-05 00:36] LABS: INR 1.27 (0.83-1.09); PROTHROMBIN TIME (PATIENT) 14.2 SEC (9.7-13.0)
[2023-07-05 00:38] LABS: ACTIVATED PTT 33.6 SECONDS (25.2-36.5)
[2023-07-05 00:50] LABS: POTASSIUM 4.7 mmol/L (3.5-5.1)
[2023-07-05 00:52] LABS: ALBUMIN 3.1 g/dl (3.4-5.0); BLOOD UREA NITROGEN 16.4 mg/dL (7-18)
[2023-07-05 00:55] LABS: CREATININE 1.4 mg/dL (0.55-1.3)
[2023-07-05 00:57] LABS: TOT PROT 6.3 g/dl (6.4-8.2)
[2023-07-05 02:40] LABS: EPI CELLS 12 /uL (0-25.1); HYALINE CASTS 0 /uL (0-3.1); URINE APPEARANCE TURBID; URINE BACTERIA 5294 /uL (0-1359); URINE BILIRUBIN NEGATIVE (NEGATIVE); URINE COLOR YELLOW; URINE GLUCOSE (UA) NEGATIVE (NEGATIVE); URINE KETONE NEGATIVE (NEGATIVE); URINE LEUK ESTERASE 3+ (NEGATIVE); URINE NITRITE POSITIVE (NEGATIVE); URINE PROTEIN 1+ (NEGATIVE); URINE RBC 26 /uL (0-23.9); URINE UROBILINOGEN 0.2 mg/dL (0.2-1.0); URINE WBC 2884 /uL (0-25.8)
[2023-07-05] MEDS ORDERED: CEFTRIAXONE 1 GM/50 ML BAG ONE (02:55)
[2023-07-05] MEDS ORDERED: ACETAMINOPHEN INJECTION 100 ML IVPB ONE (03:35)
[2023-07-05] MEDS: SODIUM CHLORIDE 0.9% 500 ML INFUS.BAG IV ONE (03:56)
[2023-07-05] MEDS: ACETAMINOPHEN 1000 MG/100 ML BAG IVPB ONE (03:56)
[2023-07-05] MEDS: ONDANSETRON 4 MG/2 ML VIAL IVPUSH ONE (03:57)
[2023-07-05] MEDS ORDERED: ONDANSETRON 4 MG/2 ML VIAL ONE (03:58)
[2023-07-05 05:32] VITALS: BMI 30.8
[2023-07-05] MEDS: SODIUM CHLORIDE 0.45% 1,000 ML IV SCH ×2 (06:00→09:35)
[2023-07-05] MEDS: INSULIN ASPART SLIDING SCALE (NOVOLOG) 1 VIAL SQ SCH (06:28)
[2023-07-05] MEDS: ARTIFICIAL TEARS OPHTHALMIC DROPS OS SCH (09:23)
[2023-07-05] MEDS: amLODIPine BESYLATE 2.5 MG TABLET (FP) PO SCH (09:28)
[2023-07-05] MEDS: ASPIRIN 81 MG CHEWABLE TABLETS PO SCH (09:28)
[2023-07-05] MEDS: FINASTERIDE 5 MG TABLET (FP) PO SCH (09:28)
[2023-07-05 09:43] LABS: BASO % 0.3 % (0-2.0); EOS % 0.2 % (0-4.5); HEMATOCRIT 31.3 % (35.4-49); HEMOGLOBIN 10.5 GM/dL (11.7-16.9); LYMPH % 7.3 % (8-40); MCH 29.9 pg (25.7-33.7); MCHC 33.7 g/dl (32.0-35.9); MEAN CELL VOLUME 88.8 fl (80-96); MEAN PLT VOLUME 7.3 fl (7.5-11.1); MONO % 7.3 % (3.8-10.2); NEUT % 84.9 % (42.8-82.8); PLATELET COUNT 231 10^3/uL (134-434); RBC 3.52 M/mm3 (4.00-5.60); RDW 14.1 % (11.9-15.9); WHITE BLOOD COUNT 19.7 K/mm3 (4.0-10.0)
[2023-07-05] MEDS: MEMANTINE HCL 5 MG TABLET (UD) PO SCH (09:48)
[2023-07-05] MEDS: PANTOPRAZOLE 20 MG TABLET PO SCH (09:48)
[2023-07-05 10:03] LABS: POTASSIUM 4.4 mmol/L (3.5-5.1)
[2023-07-05 10:19] LABS: CALCIUM 8.6 mg/dL (8.5-10.1); CREATININE 1.3 mg/dL (0.55-1.3); PHOSPHOROUS 2.8 mg/dL (2.5-4.9)
[2023-07-05 10:20] LABS: BLOOD UREA NITROGEN 15.8 mg/dL (7-18)
[2023-07-05] MEDS: ACETAMINOPHEN 325 MG TABLET (FP) PO PRN (12:27)
[2023-07-05] MEDS: TAMSULOSIN HCL 0.4 MG CAP PO SCH (16:47)
[2023-07-05] MEDS: ATORVASTATIN CA 40 MG TABLET (FP) PO SCH (21:27)
[2023-07-05] MEDS: DOCUSATE SODIUM 100 MG CAPSULE (FP) PO SCH (21:27)
[2023-07-05] MEDS: traZODone HCL 50 MG TABLET (FP) PO SCH (21:27)
[2023-07-06] MEDS: SODIUM CHLORIDE 0.45% 1,000 ML IV SCH (03:11)
[2023-07-06] MEDS: INSULIN (LEVEMIR) 100 UNITS/ML UNITS SQ SCH (06:15)
[2023-07-06] MEDS ORDERED: INSULIN (LEVEMIR) 100 UNITS/ML UNITS SQ SCH (07:00)
[2023-07-06 09:51] LABS: BASO % 0.2 % (0-2.0); EOS % 1.3 % (0-4.5); HEMATOCRIT 31.9 % (35.4-49); HEMOGLOBIN 10.6 GM/dL (11.7-16.9); LYMPH % 9.9 % (8-40); MCH 29.6 pg (25.7-33.7); MCHC 33.1 g/dl (32.0-35.9); MEAN CELL VOLUME 89.4 fl (80-96); MEAN PLT VOLUME 7.2 fl (7.5-11.1); NEUT % 81.6 % (42.8-82.8); PLATELET COUNT 187 10^3/uL (134-434); RBC 3.57 M/mm3 (4.00-5.60); RDW 14.3 % (11.9-15.9); WHITE BLOOD COUNT 18.5 K/mm3 (4.0-10.0)
[2023-07-06] MEDS: CEFTRIAXONE 1 GM in DEXTROSE 5%-WATER - 50 ML IVPB SCH (09:58)
[2023-07-06 10:09] LABS: POTASSIUM 4.2 mmol/L (3.5-5.1)
[2023-07-06 10:12] LABS: CALCIUM 8.5 mg/dL (8.5-10.1)
[2023-07-06 10:13] LABS: BLOOD UREA NITROGEN 18.4 mg/dL (7-18)
[2023-07-06 10:16] LABS: CREATININE 1.3 mg/dL (0.55-1.3)
[2023-07-06] MEDS: TAMSULOSIN HCL 0.4 MG CAP PO SCH (13:56)
[2023-07-06] MEDS ORDERED: INSULIN ASPART SLIDING SCALE (NOVOLOG) 1 VIAL SQ ONE (17:02)
[2023-07-06] MEDS: PIPERACILLIN/TAZOB 3.375 GM 3.375 GM in DEXTROSE 5%-WATER - 50 ML IVPB SCH (19:56)
[2023-07-07 08:40] LABS: BASO % 0.4 % (0-2.0); EOS % 1.3 % (0-4.5); HEMATOCRIT 28.4 % (35.4-49); HEMOGLOBIN 9.5 GM/dL (11.7-16.9); LYMPH % 15.4 % (8-40); MCH 29.7 pg (25.7-33.7); MCHC 33.5 g/dl (32.0-35.9); MEAN CELL VOLUME 88.7 fl (80-96); MEAN PLT VOLUME 7.5 fl (7.5-11.1); MONO % 8.2 % (3.8-10.2); NEUT % 74.7 % (42.8-82.8); PLATELET COUNT 198 10^3/uL (134-434); RDW 14.1 % (11.9-15.9); WHITE BLOOD COUNT 14.2 K/mm3 (4.0-10.0)
[2023-07-07 08:58] LABS: POTASSIUM 4.2 mmol/L (3.5-5.1)
[2023-07-07 09:02] LABS: BLOOD UREA NITROGEN 14.8 mg/dL (7-18)
[2023-07-07 09:04] LABS: CALCIUM 7.8 mg/dL (8.5-10.1)
[2023-07-07 09:05] LABS: CREATININE 1.3 mg/dL (0.55-1.3)
[2023-07-08] MEDS: TAMSULOSIN HCL 0.4 MG CAP PO SCH (10:10)
[2023-07-08 10:16] LABS: EOS % 2.3 % (0-4.5); HEMATOCRIT 32.4 % (35.4-49); HEMOGLOBIN 10.8 GM/dL (11.7-16.9); LYMPH % 20.3 % (8-40); MCH 29.7 pg (25.7-33.7); MCHC 33.3 g/dl (32.0-35.9); MEAN CELL VOLUME 89.2 fl (80-96); MEAN PLT VOLUME 7.1 fl (7.5-11.1); MONO % 8.2 % (3.8-10.2); NEUT % 68.2 % (42.8-82.8); PLATELET COUNT 218 10^3/uL (134-434); RBC 3.64 M/mm3 (4.00-5.60); RDW 14.2 % (11.9-15.9)
[2023-07-08 10:26] LABS: BLOOD UREA NITROGEN 13.1 mg/dL (7-18); CALCIUM 8.2 mg/dL (8.5-10.1)
[2023-07-08 10:31] LABS: CREATININE 1.3 mg/dL (0.55-1.3)
[2023-07-09 08:00] LABS: BASO % 0.8 % (0-2.0); EOS % 3.5 % (0-4.5); HEMATOCRIT 29.8 % (35.4-49); HEMOGLOBIN 10.1 GM/dL (11.7-16.9); LYMPH % 26.1 % (8-40); MCH 30.3 pg (25.7-33.7); MEAN PLT VOLUME 7.2 fl (7.5-11.1); MONO % 7.9 % (3.8-10.2); NEUT % 61.7 % (42.8-82.8); PLATELET COUNT 229 10^3/uL (134-434); RBC 3.35 M/mm3 (4.00-5.60); RDW 13.9 % (11.9-15.9); WHITE BLOOD COUNT 10.8 K/mm3 (4.0-10.0)
[2023-07-09 08:18] LABS: POTASSIUM 4.1 mmol/L (3.5-5.1)
[2023-07-09 08:26] LABS: CALCIUM 8.3 mg/dL (8.5-10.1)
[2023-07-09 08:31] LABS: BLOOD UREA NITROGEN 9.4 mg/dL (7-18)
[2023-07-09 08:34] LABS: CREATININE 1.2 mg/dL (0.55-1.3)
[2023-07-10 12:56] LABS: BASO % 0.8 % (0-2.0); HEMATOCRIT 32.8 % (35.4-49); HEMOGLOBIN 11.1 GM/dL (11.7-16.9); LYMPH % 26.7 % (8-40); MCH 29.7 pg (25.7-33.7); MCHC 33.8 g/dl (32.0-35.9); MEAN CELL VOLUME 88.1 fl (80-96); MEAN PLT VOLUME 6.8 fl (7.5-11.1); MONO % 7.1 % (3.8-10.2); NEUT % 61.4 % (42.8-82.8); PLATELET COUNT 287 10^3/uL (134-434); RBC 3.72 M/mm3 (4.00-5.60); RDW 14.2 % (11.9-15.9); WHITE BLOOD COUNT 9.3 K/mm3 (4.0-10.0)
[2023-07-10 13:14] LABS: POTASSIUM 4.1 mmol/L (3.5-5.1)
[2023-07-10 13:16] LABS: ALBUMIN 2.6 g/dl (3.4-5.0); BLOOD UREA NITROGEN 12.2 mg/dL (7-18); CALCIUM 8.3 mg/dL (8.5-10.1)
[2023-07-10 13:19] LABS: CREATININE 1.3 mg/dL (0.55-1.3)
[2023-07-10 13:20] LABS: BILIRUBIN,TOTAL 0.4 mg/dL (0.2-1); TOT PROT 5.8 g/dl (6.4-8.2)
[2023-07-11 08:06] LABS: BASO % 0.9 % (0-2.0); EOS % 4.5 % (0-4.5); HEMATOCRIT 30.5 % (35.4-49); HEMOGLOBIN 10.2 GM/dL (11.7-16.9); LYMPH % 26.4 % (8-40); MCH 29.7 pg (25.7-33.7); MCHC 33.5 g/dl (32.0-35.9); MEAN CELL VOLUME 88.6 fl (80-96); MEAN PLT VOLUME 6.8 fl (7.5-11.1); MONO % 7.7 % (3.8-10.2); NEUT % 60.5 % (42.8-82.8); PLATELET COUNT 295 10^3/uL (134-434); RBC 3.45 M/mm3 (4.00-5.60); WHITE BLOOD COUNT 10.3 K/mm3 (4.0-10.0)
[2023-07-11 08:25] LABS: CALCIUM 8.4 mg/dL (8.5-10.1)
[2023-07-11 08:26] LABS: BLOOD UREA NITROGEN 16.2 mg/dL (7-18)
[2023-07-11 08:29] LABS: CREATININE 1.3 mg/dL (0.55-1.3)
[2023-07-11 12:10] LABS: INR 1.28 (0.83-1.09); PROTHROMBIN TIME (PATIENT) 14.4 SEC (9.7-13.0)
[2023-07-12 08:14] LABS: BASO % 0.7 % (0-2.0); EOS % 4.5 % (0-4.5); HEMATOCRIT 30.1 % (35.4-49); HEMOGLOBIN 9.9 GM/dL (11.7-16.9); LYMPH % 28.8 % (8-40); MCH 28.9 pg (25.7-33.7); MCHC 32.9 g/dl (32.0-35.9); MEAN CELL VOLUME 87.8 fl (80-96); MEAN PLT VOLUME 7.1 fl (7.5-11.1); MONO % 5.5 % (3.8-10.2); NEUT % 60.5 % (42.8-82.8); PLATELET COUNT 331 10^3/uL (134-434); RBC 3.43 M/mm3 (4.00-5.60); RDW 13.8 % (11.9-15.9); WHITE BLOOD COUNT 12.2 K/mm3 (4.0-10.0)
[2023-07-12 08:38] LABS: POTASSIUM 4.2 mmol/L (3.5-5.1)
[2023-07-12 08:44] LABS: BLOOD UREA NITROGEN 13.8 mg/dL (7-18); CALCIUM 8.3 mg/dL (8.5-10.1)
[2023-07-12 08:47] LABS: CREATININE 1.3 mg/dL (0.55-1.3)
[2023-07-12] MEDS: SODIUM CHLORIDE 1,000 ML IV SCH (09:00)
[2023-07-12] MEDS: MELATONIN 5 MG TABLETS PO PRN (21:09)
[2023-07-13 07:14] LABS: BASO % 0.8 % (0-2.0); HEMATOCRIT 29.5 % (35.4-49); LYMPH % 26.4 % (8-40); MCHC 33.9 g/dl (32.0-35.9); MEAN CELL VOLUME 88.4 fl (80-96); MEAN PLT VOLUME 7.1 fl (7.5-11.1); MONO % 5.8 % (3.8-10.2); PLATELET COUNT 349 10^3/uL (134-434); RBC 3.34 M/mm3 (4.00-5.60); WHITE BLOOD COUNT 12.7 K/mm3 (4.0-10.0)
[2023-07-13 07:25] LABS: POTASSIUM 4.2 mmol/L (3.5-5.1)
[2023-07-13 07:29] LABS: CALCIUM 8.6 mg/dL (8.5-10.1)
[2023-07-13 07:31] LABS: ALBUMIN 2.6 g/dl (3.4-5.0); BLOOD UREA NITROGEN 13.4 mg/dL (7-18)
[2023-07-13 07:32] LABS: CREATININE 1.2 mg/dL (0.55-1.3)
[2023-07-13 07:34] LABS: BILIRUBIN,TOTAL 0.4 mg/dL (0.2-1); TOT PROT 5.6 g/dl (6.4-8.2)
[2023-07-13] MEDS ORDERED: ONDANSETRON 4 MG/2 ML VIAL IVPUSH PRN ×2 (10:06→12:27)
[2023-07-13] MEDS ORDERED: PROMETHAZINE HCL 25 MG/1 ML VIAL IVPB PRN ×2 (10:06→12:27)
[2023-07-13] MEDS: SODIUM CHLORIDE 1,000 ML IV SCH ×2 (10:41→12:52)
[2023-07-13] MEDS ORDERED: LIDOCAINE HCL/PF 2% SDV 5ML VIAL ONE (11:23)
[2023-07-13] MEDS ORDERED: PROPOFOL 20 ML ONE (11:24)
[2023-07-13] MEDS: ceFAZolin SODIUM 1 GM VIAL IVPB ONE (11:30)
[2023-07-13] MEDS ORDERED: ceFAZolin SODIUM 1 GM VIAL ONE (11:31)
[2023-07-13] MEDS ORDERED: FENTANYL CITRATE/PF 50 MCG/ML VIAL ONE (11:42)
[2023-07-13] MEDS: LACTATED RINGERS SOLUTION 1,000 ML IV SCH ×2 (12:35→13:31)
[2023-07-13] MEDS ORDERED: INSULIN ASPART SLIDING SCALE (NOVOLOG) 1 VIAL SQ ONE (13:44)
[2023-07-13] MEDS: INSULIN ASPART SLIDING SCALE (NOVOLOG) 1 VIAL SQ SCH (13:47)
[2023-07-13] MEDS: ATORVASTATIN CA 40 MG TABLET (FP) PO SCH (21:51)
[2023-07-13] MEDS: DOCUSATE SODIUM 100 MG CAPSULE (FP) PO SCH (21:51)
[2023-07-13] MEDS: TAMSULOSIN HCL 0.4 MG CAP PO SCH (21:52)
[2023-07-13] MEDS: ARTIFICIAL TEARS OPHTHALMIC DROPS OS SCH (21:53)
[2023-07-14] MEDS: INSULIN (LEVEMIR) 100 UNITS/ML UNITS SQ SCH (06:11)
[2023-07-14] MEDS ORDERED: INSULIN (LEVEMIR) 100 UNITS/ML UNITS SQ SCH (07:00)
[2023-07-14 08:40] LABS: EOS % 3.1 % (0-4.5); HEMATOCRIT 30.7 % (35.4-49); HEMOGLOBIN 10.6 GM/dL (11.7-16.9); LYMPH % 22.5 % (8-40); MCH 30.3 pg (25.7-33.7); MCHC 34.5 g/dl (32.0-35.9); MEAN CELL VOLUME 87.8 fl (80-96); MONO % 6.2 % (3.8-10.2); NEUT % 67.2 % (42.8-82.8); PLATELET COUNT 377 10^3/uL (134-434); WHITE BLOOD COUNT 10.3 K/mm3 (4.0-10.0)
[2023-07-14 08:56] LABS: POTASSIUM 4.2 mmol/L (3.5-5.1)
[2023-07-14 09:03] LABS: ALBUMIN 2.4 g/dl (3.4-5.0); BLOOD UREA NITROGEN 12.6 mg/dL (7-18)
[2023-07-14 09:08] LABS: TOT PROT 5.7 g/dl (6.4-8.2)
[2023-07-14 09:20] LABS: BILIRUBIN,TOTAL 0.4 mg/dL (0.2-1)
[2023-07-14] MEDS: PANTOPRAZOLE 20 MG TABLET PO SCH (10:21)
[2023-07-14] MEDS: FINASTERIDE 5 MG TABLET (FP) PO SCH (10:21)
[2023-07-14] MEDS: amLODIPine BESYLATE 2.5 MG TABLET (FP) PO SCH (13:33)
[2023-07-15 08:22] LABS: EOS % 3.3 % (0-4.5); HEMATOCRIT 31.2 % (35.4-49); HEMOGLOBIN 10.8 GM/dL (11.7-16.9); LYMPH % 28.9 % (8-40); MCH 29.9 pg (25.7-33.7); MCHC 34.5 g/dl (32.0-35.9); MEAN CELL VOLUME 86.8 fl (80-96); MEAN PLT VOLUME 6.8 fl (7.5-11.1); MONO % 5.5 % (3.8-10.2); NEUT % 61.3 % (42.8-82.8); PLATELET COUNT 415 10^3/uL (134-434); RBC 3.59 M/mm3 (4.00-5.60); RDW 14.2 % (11.9-15.9); WHITE BLOOD COUNT 10.9 K/mm3 (4.0-10.0)
[2023-07-15 08:43] LABS: POTASSIUM 3.9 mmol/L (3.5-5.1)
[2023-07-15 08:46] LABS: ALBUMIN 2.5 g/dl (3.4-5.0); BLOOD UREA NITROGEN 11.1 mg/dL (7-18); CALCIUM 8.2 mg/dL (8.5-10.1)
[2023-07-15 08:50] LABS: CREATININE 1.1 mg/dL (0.55-1.3)
[2023-07-15 08:51] LABS: BILIRUBIN,TOTAL 0.4 mg/dL (0.2-1); TOT PROT 5.7 g/dl (6.4-8.2)
[2023-07-15] MEDS: MELATONIN 5 MG TABLETS PO PRN (22:36)
[2023-07-16] MEDS: amLODIPine BESYLATE 2.5 MG TABLET (FP) PO SCH (09:33)
[2023-07-16 13:22] VITALS: BP 123/43; PULSE 57; RESP 16; TEMP 98.1
== END 2023-07-16 14:51 | DRG 666 ==
LOC: JER 22:43 → JERBED 07-05 03:40 → J5S 07-05 04:41 → OBSVTOIN 07-05 08:44
PROVIDERS: ADMIT Internal Medicine; ATTEND Internal Medicine
PROC: 0T7D8ZZ Dilation of Urethra, Via Natural or Artificial Opening Endoscopic (ICD-10-PCS; 2023-07-13)
PROC: 0TJB8ZZ Inspection of Bladder, Via Natural or Artificial Opening Endoscopic (ICD-10-PCS; 2023-07-13)
PROC: 0VT08ZZ Resection of Prostate, Via Natural or Artificial Opening Endoscopic (ICD-10-PCS; principal; 2023-07-13 10:30)
DX: N39.0 Urinary tract infection, site not specified (principal); E87.1 Hypo-osmolality and hyponatremia; N40.1 Benign prostatic hyperplasia with lower urinary tract symptoms; N13.30 Unspecified hydronephrosis; E11.65 Type 2 diabetes mellitus with hyperglycemia; F03.90 Unspecified dementia, unspecified severity, without behavioral disturbance, psychotic disturbance, mood disturbance, and anxiety; I12.9 Hypertensive chronic kidney disease with stage 1 through stage 4 chronic kidney disease, or unspecified chronic kidney disease; I25.10 Atherosclerotic heart disease of native coronary artery without angina pectoris; E78.5 Hyperlipidemia, unspecified; E11.22 Type 2 diabetes mellitus with diabetic chronic kidney disease; B96.20 Unspecified Escherichia coli [E. coli] as the cause of diseases classified elsewhere; E86.0 Dehydration; R33.9 Retention of urine, unspecified; N13.9 Obstructive and reflux uropathy, unspecified; I35.0 Nonrheumatic aortic (valve) stenosis; N18.9 Chronic kidney disease, unspecified; K21.9 Gastro-esophageal reflux disease without esophagitis
CPT/HCPCS: 0241U-QW; 36415; 71045-TC-FY; 76775-TC; 80048; 80053; 81003; 82962; 83735; 84100; 84484; 85025; 85610; 85730; 86850; 86900; 86901; 87040; 87086; 87186; 87635; 88305-TC; 93005; 93010; 93306-TC; 94760; 97116-GP; 97162-GP; 99285-25; G0378; J0131